=== PATIENT | male | born 1935 | race Caucasian/White ===

== ENCOUNTER 2019-07-23 03:31 | Inpatient (IN) | payer OTHER, BC ==
--- NOTE | 2019-07-23 04:29 | PDOC ---
History of Present Illness - General Chief Complaint: Psychiatric Stated Complaint: ALTERED MENTAL STATUS Time Seen by Provider: 07/23/19 04:18 History Source: Patient, Family, Spouse (son) - History of Present Illness Initial Comments: 83 yo M PMH HTN, DMII, CAD s/p stents, depression, BPH, gout, kidney stones, parathyroid adenoma s/p parathyroidectomy 4 years ago, presenting with visual hallucinations. States that there are people with cameras everywhere, spying on him. Per family, he has had a cough for the past few days. Took Nyquil last night (normal dose) and visual hallucinations happened afterwards. Reportedly had delusions that nurses were changing his medication around the time period he had his parathyroidectomy, which improved after the surgery. Patient had not had any psychiatric issues since then. Specifically denies SI or HI. Patient has no complaints. Specifically denies LOC or trauma of any kind. Past History - Past Medical History Allergies/Adverse Reactions: Allergies No Known Allergies Allergy (Verified 07/23/19 03:45) Home Medications: Ambulatory Orders Finasteride 5 mg PO DAILY 03/27/15 Lisinopril [Prinivil -] 10 mg PO DAILY 03/27/15 Metoprolol Succinate [Toprol Xl -] 25 mg PO DAILY 03/27/15 Tamsulosin HCl [Flomax] 0.4 mg PO DAILY 03/27/15 Clopidogrel Bisulfate [Clopidogrel] 75 mg PO DAILY 07/23/19 Levothyroxine [Synthroid -] 88 mcg PO DAILY 07/23/19 - Social History Smoking Status: Never smoked *Review of Systems - Review of Systems Able to Perform ROS?: Yes Constitutional: No: Chills, Fever, Weakness HEENTM: No: Recent change in vision, Throat Pain, Throat Swelling, Mouth Swelling Respiratory: Yes: Cough. No: Shortness of Breath Cardiac (ROS): No: Chest Pain, Edema, Irregular Heart Rate, Palpitations ABD/GI: No: Constipated, Diarrhea, Nausea, Vomiting : No: Burning, Dysuria Musculoskeletal: No: Back Pain, Neck Pain Integumentary: No: Bruising Neurological: No: Headache, Numbness, Tingling *Physical Exam - Vital Signs Last Vital Signs Temp Pulse Resp BP Pulse Ox 85 18 119/67 95 07/23/19 03:38 07/23/19 03:38 07/23/19 03:38 07/23/19 03:38 - Physical Exam Comments: 07/23/19 04:59 Gen: well-developed, well-nourished, NAD Neuro: AAOX4, CN II-XII intact, FTN intact, pupils bilaterally constricted and minimally responsive to light Psych: denies SI or HI, endorses visual hallucinations and delusions (sees people with cameras everywhere who are spying on him) HEENT: atraumatic, normocephalic Neck: trachea midline, supple CV: regular rate, regular rhythm, no murmurs, rubs, or gallops Pulm: diffusely muffled bilaterally Abd: soft, non-distended, non-tender MSK: full ROM, intact pulses Extr: no edema, no deformities Skin: warm, dry Plan - Progress Note Progress Note: 07/23/19 05:01 Concern for infection (temp of 100.1, sat at 94%) v possible brain bleed v mass v depression with hallucinations (diagnosis of exclusion). - CBC, CMP - EKG, CXR - UA/UC - blood cultures - trop - ctm - get psych on board once patient is medically cleared 07/23/19 06:47 EKG 71 bpm, normal sinus. 07/23/19 07:13 CXR concerning for R lower lobe PNA. Will treat empirically for CAP, admit patient. 07/23/19 07:[address] Oquendo, will get patient admitted. - Laboratory CBC & Chemistry Diagram: 07/23/19 05:21 07/23/19 05:21
--- NOTE | 2019-07-23 05:14 | PDOC ---
Attending Attestation - Resident Resident Name: Danielle Cash - ED Attending Attestation I have performed the following: I have examined & evaluated the patient, The case was reviewed & discussed with the resident, I agree w/resident's findings & plan, Exceptions are as noted - HPI HPI: 07/23/19 05:12 83 M with h/o HTN, DM, CAD/stents, depression, BPH, parathyroidectomy, presenting to ED with AMS. Pt's family states that he has been having visual hallucinations, believing that people are taking pictures of him with cameras. The hallucinations started over the past 24 hours. Family notes that he has been coughing for 2 days but has not had any fevers or chills. No previous history of hallucinations. - Physicial Exam PE: 07/23/19 05:13 "GENERAL: Awake, alert, and fully oriented, in no acute distress. HEAD: No signs of trauma EYES: PERRLA, EOMI, sclera anicteric, conjunctiva clear ENT: Auricles normal inspection, hearing grossly normal, nares patent, oropharynx clear without exudates. Moist mucosa NECK: Nontender, no stepoffs, Normal ROM, supple, no lymphadenopathy, JVD, or masses LUNGS: Breath sounds equal, clear to auscultation bilaterally. No wheezes, and no crackles HEART: Regular rate and rhythm, normal S1 and S2, no murmurs, rubs or gallops ABDOMEN: Soft, nontender, normoactive bowel sounds. No guarding, no rebound. No masses EXTREMITIES: Normal range of motion, no edema. No clubbing or cyanosis. No cords, erythema, or tenderness NEUROLOGICAL: Cranial nerves II through XII intact. 5/5 strength and sensation in all extremities, Normal speech, normal gait, normal cerebellar function SKIN: Warm, Dry, normal turgor, no rashes or lesions noted. - Medical Decision Making 07/23/19 05:13 83 M with hallucinations. Suspect delirium in the setting of febrile illness. Pt with temp 100.1 in ED. Will evaluate for UTI vs PNA. Pt with no headache or other signs of meningismus. - Labs, cultures - CXR, UA - CT head
[2019-07-23 05:40] LABS: BASO % 0.6 % (0-2.0); EOS % 0.1 % (0-4.5); HEMATOCRIT 41.2 % (35.4-49); HEMOGLOBIN 13.7 GM/dL (11.7-16.9); LYMPH % 14.4 % (8-40); MCH 27.5 pg (25.7-33.7); MCHC 33.3 g/dl (32.0-35.9); MEAN CELL VOLUME 82.7 fl (80-96); MEAN PLT VOLUME 7.3 fl (7.5-11.1); MONO % 11.6 % (3.8-10.2); NEUT % 73.3 % (42.8-82.8); PLATELET COUNT 105 K/MM3 (134-434); RBC 4.98 M/mm3 (4.00-5.60); RDW 14.4 % (11.9-15.9); WHITE BLOOD COUNT 4.3 K/mm3 (4.0-10.0)
[2019-07-23 06:04] LABS: MAGNESIUM 1.9 mg/dL (1.8-2.4); PHOSPHOROUS 2.2 mg/dL (2.5-4.9)
[2019-07-23 06:24] LABS: ALBUMIN 3.3 g/dl (3.4-5.0); ALK PHOS 96 U/L (45-117); ANION GAP 7 MMOL/L (8-16); BILIRUBIN,TOTAL 1.1 mg/dL (0.2-1); BLOOD UREA NITROGEN 15.6 mg/dL (7-18); CALCIUM 8.5 mg/dL (8.5-10.1); CHLORIDE 105 mmol/L (98-107); CO2 27 mmol/L (21-32); CREATININE 0.9 mg/dL (0.55-1.3); GLUCOSE,RANDOM 122 mg/dL (74-106); POTASSIUM 3.9 mmol/L (3.5-5.1); SGOT/AST 17 U/L (15-37); SGPT/ALT 14 U/L (13-61); SODIUM 138 mmol/L (136-145); TOT PROT 6.1 g/dl (6.4-8.2)
[2019-07-23] MEDS ORDERED: AZITHROMYCIN IVPB 500 MG in DEXTROSE 5%-WATER - 250 ML IVPB ONE (07:13)
--- NOTE | 2019-07-23 07:24 | PDOC ---
*Physical Exam - Vital Signs Last Vital Signs Temp Pulse Resp BP Pulse Ox 100.1 F H 85 18 119/67 95 07/23/19 04:54 07/23/19 03:38 07/23/19 03:38 07/23/19 03:38 07/23/19 03:38 ED Treatment Course - LABORATORY CBC & Chemistry Diagram: 07/23/19 05:21 07/23/19 05:21 - ADDITIONAL ORDERS Additional order review: Laboratory Results 07/23/19 07/23/19 05:21 05:21 Sodium 138 Potassium 3.9 Chloride 105 Carbon Dioxide 27 Anion Gap 7 L BUN 15.6 Creatinine 0.9 Est GFR (CKD-EPI)AfAm 89.95 Est GFR (CKD-EPI)NonAf 77.61 Random Glucose 122 H Calcium 8.5 Phosphorus 2.2 L Magnesium 1.9 Total Bilirubin 1.1 H AST 17 ALT 14 Alkaline Phosphatase 96 Troponin I < 0.02 Total Protein 6.1 L Albumin 3.3 L 07/23/19 05:21 RBC 4.98 MCV 82.7 MCHC 33.3 RDW 14.4 MPV 7.3 L Neutrophils % 73.3 Lymphocytes % 14.4 Monocytes % 11.6 H Eosinophils % 0.1 D Basophils % 0.6 D Medical Decision Making - Medical Decision Making 07/23/19 07:23 - Sign out received from Dr. Santos. - Will admit
[2019-07-23] MEDS ORDERED: CEFTRIAXONE 1 GM/50 ML BAG ONE (08:14)
[2019-07-23] MEDS ORDERED: NAPH,MB-DB/K PH,MBDB POWDER PACKET PO ONE (08:16)
--- NOTE | 2019-07-23 08:22 | EKG ---
Test Reason : Blood Pressure : / mmHG Vent. Rate : 071 BPM Atrial Rate : 071 BPM P-R Int : 142 ms QRS Dur : 094 ms QT Int : 394 ms P-R-T Axes : 022 -07 049 degrees QTc Int : 428 ms NORMAL SINUS RHYTHM NORMAL ECG WHEN COMPARED WITH ECG OF 27-MAR-2015 16:20, NONSPECIFIC T WAVE ABNORMALITY NO LONGER EVIDENT IN INFERIOR LEADS T WAVE INVERSION NO LONGER EVIDENT IN LATERAL LEADS Confirmed by Hazel Garvin ([id number]) on 07/23/2019 8:22:28 AM Referred By: Confirmed By:Hazel Garvin
[2019-07-23 08:27] LABS: EPI CELLS 0.3 /HPF (0-5/HPF); HYALINE CASTS 0 /lpf (0-8); URINE APPEARANCE CLEAR; URINE BACTERIA 24.6 /hpf (NEGATIVE); URINE BILIRUBIN NEGATIVE (NEGATIVE); URINE COLOR YELLOW; URINE GLUCOSE (UA) NEGATIVE (NEGATIVE); URINE KETONE NEGATIVE (NEGATIVE); URINE LEUK ESTERASE NEGATIVE (NEGATIVE); URINE NITRITE NEGATIVE (NEGATIVE); URINE PROTEIN NEGATIVE (NEGATIVE); URINE RBC 5 /hpf (0-4); URINE WBC 0 /hpf (0-5)
--- NOTE | 2019-07-23 09:00 | PDOC ---
*Physical Exam - Vital Signs Last Vital Signs Temp Pulse Resp BP Pulse Ox 100.1 F H 80 20 141/65 97 07/23/19 04:54 07/23/19 08:03 07/23/19 08:03 07/23/19 08:03 07/23/19 08:03 - Physical Exam Comments: 07/23/19 08:59 Awake alert no acute distress dry mucous membranes lungs are noted for crackles at the bases posteriorly otherwise clear heart is regular without murmurs rubs or gallops abdomen is soft and nontender extremities are warm well perfused skin is noted for a red scaly rash in the buttock region possible stage I decub there is no fluctuance no warmth otherwise skin is clear dry and intact ED Treatment Course - LABORATORY CBC & Chemistry Diagram: 07/23/19 05:21 07/23/19 05:21 - ADDITIONAL ORDERS Additional order review: Laboratory Results 07/23/19 07/23/19 07/23/19 08:00 05:21 05:21 Sodium 138 Potassium 3.9 Chloride 105 Carbon Dioxide 27 Anion Gap 7 L BUN 15.6 Creatinine 0.9 Est GFR (CKD-EPI)AfAm 89.95 Est GFR (CKD-EPI)NonAf 77.61 Random Glucose 122 H Calcium 8.5 Phosphorus 2.2 L Magnesium 1.9 Total Bilirubin 1.1 H AST 17 ALT 14 Alkaline Phosphatase 96 Troponin I < 0.02 Total Protein 6.1 L Albumin 3.3 L Urine Color Yellow Urine Appearance Clear Urine pH 6.0 Ur Specific [place] 1.016 Urine Protein Negative Urine Glucose (UA) Negative Urine Ketones Negative Urine Blood Trace Urine Nitrite Negative Urine Bilirubin Negative Urine Urobilinogen 1.0 Ur Leukocyte Esterase Negative Urine WBC (Auto) 0 Urine RBC (Auto) 5 Urine Casts (Auto) 0 U Epithel Cells (Auto) 0.3 Urine Bacteria (Auto) 24.6 07/23/19 05:21 RBC 4.98 MCV 82.7 MCHC 33.3 RDW 14.4 MPV 7.3 L Neutrophils % 73.3 Lymphocytes % 14.4 Monocytes % 11.6 H Eosinophils % 0.1 D Basophils % 0.6 D - Medications Given in the ED: ED Medications Discontinued Medications Generic Name Dose Route Start Last Admin Trade Name Freq PRN Reason Stop Dose Admin Ceftriaxone Sodium 1,000 mg 07/23/19 07:13 07/23/19 08:15 Rocephin - IVPUSH 07/23/19 07:14 1,000 mg ONCE ONE Administration Medical Decision Making - Medical Decision Making 07/23/19 08:56 Yes Very experience of this medication she looks: Patient is here 83-year-old male history of hypertension CAD with stents BPH depression hyperlipidemia here today complaining of confusion with family members and states he has been hallucinating. Patient was signed out to me by the overnight team ice and care of the patient at 7 AM states that he has had a cough productive of phlegm for the last few days denies any nausea vomiting or abdominal pain. Patient's family states that he did take some NyQuil on the evening prior and they have been noticing that he has been hallucinating other than the NyQuil no new medications. He is complaining also of a rash on his buttock for which she was given some creams by dermatology recently no reported fever chills at home however the patient was febrile presentation here. On my exam the patient is awake alert does appear to have mild dry mucous membranes lungs are noted for crackles at the bases no wheezing normal effort heart is regular without murmurs rubs or gallops abdomen is soft and nontender extremities are warm and well-perfused. Skin is warm and dry the gluteal region is noted for what appears to be stage I mild erythema there is some scaling X-ray by the ED team was felt to have concerns for right lower lobe infiltrate radiology did read as negative however his clinical exam shows crackles and he is febrile consistent with his cough will be treated with azithromycin and ceftriaxone delirium could be attributed to infection and underlying dementia also contributing factor may have been the NyQuil that the patient took patient was endorsed to the admitting team diagnosis delirium and commune acquired pneumonia Discharge - Discharge Information Problems reviewed: Yes Clinical Impression/Diagnosis: Delirium, Pneumonia, Febrile illness - Follow up/Referral - Patient Discharge Instructions - Post Discharge Activity
[2019-07-23] MEDS ORDERED: LACTATED RINGERS SOLUTION 1,000 ML IV SCH (09:15)
--- NOTE | 2019-07-23 09:21 | HP ---
CHIEF COMPLAINT: altered mental status HISTORY OF PRESENT ILLNESS: 83 year old male with a past medical history of diabetes mellitus, hypertension , CAD s/p stents, depression, and parathyroidectomy presents to the hospital for 1 night of altered mental status. Per at bedside, she reports that last night around 2am, the patient was awake and started to see "cameras in the house" and reported seeing people in the house that were not there. States that a similar event happened only once before several years ago after his parathyroidectomy but never since. The family endorses a 2 day history of non- productive cough. No recent travel, no sick contacts. Denies dysuria, polyuria, chest pain, shortness of breath, fevers, chills, nausea, vomiting, diarrhea, abdominal pain. ER course was notable for: (1) Temp in ER 100.1 (2) CXR in ER reported clear, could have faint, small infiltrate in RLL (3) thrombocytopenia Recent Travel: denies PAST MEDICAL HISTORY: DM, HTN, CAD s/p stents, depression, parathyroid PAST SURGICAL HISTORY: cardiac stenting 1 year ago, parathyroidectomy 3 years ago Social History: Smoking: former, quit 30 years ago Alcohol: social Drugs: denies Family History: family history of heart disease Allergies No Known Allergies Allergy (Verified 07/23/19 03:45) HOME MEDICATIONS: Home Medications Medication Instructions Recorded Finasteride 5 mg PO DAILY 03/27/15 Lisinopril [Prinivil -] 10 mg PO DAILY 03/27/15 Metoprolol Succinate [Toprol Xl -] 25 mg PO DAILY 03/27/15 Tamsulosin HCl [Flomax] 0.4 mg PO DAILY 03/27/15 Clopidogrel Bisulfate [Clopidogrel] 75 mg PO DAILY 07/23/19 Levothyroxine [Synthroid -] 88 mcg PO DAILY 07/23/19 REVIEW OF SYSTEMS CONSTITUTIONAL: Absent: fever, chills, diaphoresis, generalized weakness, malaise, loss of appetite, weight change HEENT: Absent: rhinorrhea, nasal congestion, throat pain, throat swelling, difficulty swallowing, mouth swelling, ear pain, eye pain, visual changes CARDIOVASCULAR: Absent: chest pain, syncope, palpitations, irregular heart rate, lightheadedness , peripheral edema RESPIRATORY: Absent: cough, shortness of breath, dyspnea with exertion, orthopnea, wheezing, stridor, hemoptysis GASTROINTESTINAL: Absent: abdominal pain, abdominal distension, nausea, vomiting, diarrhea, constipation, melena, hematochezia GENITOURINARY: Absent: dysuria, frequency, urgency, hesitancy, hematuria, flank pain, genital pain MUSCULOSKELETAL: Absent: myalgia, arthralgia, joint swelling, back pain, neck pain SKIN: Absent: rash, itching, pallor HEMATOLOGIC/IMMUNOLOGIC: Absent: easy bleeding, easy bruising, lymphadenopathy, frequent infections ENDOCRINE: Absent: unexplained weight gain, unexplained weight loss, heat intolerance, cold intolerance NEUROLOGIC: Absent: headache, focal weakness or paresthesias, dizziness, unsteady gait, seizure, mental status changes, bladder or bowel incontinence PSYCHIATRIC: Absent: anxiety, depression, suicidal or homicidal ideation, hallucinations. PHYSICAL EXAMINATION Vital Signs - 24 hr 07/23/19 07/23/19 07/23/19 03:38 04:54 08:03 Temperature 100.1 F H Pulse Rate 85 Pulse Rate [ 80 Right Radial] Respiratory 18 20 Rate Blood Pressure 119/67 Blood Pressure 141/65 [Right Arm] O2 Sat by Pulse 95 97 Oximetry (%) GENERAL: A&Ox3, no acute distress EYES: PERRLA, EOMI ENT: Moist mucus membranes NECK: No JVD LUNGS: CTA, no wheezes HEART: RRR, no murmurs ABDOMEN: Soft, nontender, BS present MUSCULOSKELETAL: No CVA Tenderness EXTREMITIES: 2+ pulses, no edema. NEUROLOGICAL: Cranial nerves II-XII intact. Laboratory Results - last 24 hr 07/23/19 07/23/19 07/23/19 05:21 05:21 05:21 WBC 4.3 RBC 4.98 Hgb 13.7 Hct 41.2 MCV 82.7 MCH 27.5 MCHC 33.3 RDW 14.4 Plt Count 105 L MPV 7.3 L Absolute Neuts (auto) 3.1 Neutrophils % 73.3 Lymphocytes % 14.4 Monocytes % 11.6 H Eosinophils % 0.1 D Basophils % 0.6 D Nucleated RBC % 0 Sodium 138 Potassium 3.9 Chloride 105 Carbon Dioxide 27 Anion Gap 7 L BUN 15.6 Creatinine 0.9 Est GFR (CKD-EPI)AfAm 89.95 Est GFR (CKD-EPI)NonAf 77.61 Random Glucose 122 H Calcium 8.5 Phosphorus 2.2 L Magnesium 1.9 Total Bilirubin 1.1 H AST 17 ALT 14 Alkaline Phosphatase 96 Troponin I < 0.02 Total Protein 6.1 L Albumin 3.3 L Urine Color Urine Appearance Urine pH Ur Specific [place] Urine Protein Urine Glucose (UA) Urine Ketones Urine Blood Urine Nitrite Urine Bilirubin Urine Urobilinogen Ur Leukocyte Esterase Urine WBC (Auto) Urine RBC (Auto) Urine Casts (Auto) U Epithel Cells (Auto) Urine Bacteria (Auto) 07/23/19 08:00 WBC RBC Hgb Hct MCV MCH MCHC RDW Plt Count MPV Absolute Neuts (auto) Neutrophils % Lymphocytes % Monocytes % Eosinophils % Basophils % Nucleated RBC % Sodium Potassium Chloride Carbon Dioxide Anion Gap BUN Creatinine Est GFR (CKD-EPI)AfAm Est GFR (CKD-EPI)NonAf Random Glucose Calcium Phosphorus Magnesium Total Bilirubin AST ALT Alkaline Phosphatase Troponin I Total Protein Albumin Urine Color Yellow Urine Appearance Clear Urine pH 6.0 Ur Specific [place] 1.016 Urine Protein Negative Urine Glucose (UA) Negative Urine Ketones Negative Urine Blood Trace Urine Nitrite Negative Urine Bilirubin Negative Urine Urobilinogen 1.0 Ur Leukocyte Esterase Negative Urine WBC (Auto) 0 Urine RBC (Auto) 5 Urine Casts (Auto) 0 U Epithel Cells (Auto) 0.3 Urine Bacteria (Auto) 24.6 ASSESSMENT/PLAN: 83 year old male with a past medical history of diabetes mellitus, hypertension , CAD s/p stents, depression, and parathyroidectomy presents to the hospital for 1 night of altered mental status #Altered Mental Status: elevated temperature but no fever, low concern for infectious cause as UA is negative for UTI and CXR not convincing; due to cough will empirically treat for upper respiratory cause; he is A&O x 3 but occasionally states things that are not true (people living in his house that are not there) -blood/urine cultures -ceftriaxone/azithromycin -LR @ 83cc/hr -head CT negative -monitor mental status #Coronary Artery Disease s/p stent: chronic -continue plavix 75 daily -continue metoprolol 25 daily #Thrombocytopenia: appears to be chronic based on previous admissions to the hospital, platelets are around baseline -continue to monitor CBC #Diabetes: patient does not have antiglycemic medications at home, monitor sugar tomorrow morning #Hypertension: patient was mildly hypertensive in the ED -continue home meds lisinopril 10 and metoprolol 25 #BPH: chronic -continue finasteride/tamsulosin #FEN -LR @ 83cc/hr -lytes normal -diabetic diet #Prophylaxis -SCDs #Disposition -admit med surg Visit type - Emergency Visit Emergency Visit: Yes ED Registration Date: 07/23/19 Care time: The patient presented to the Emergency Department on the above date and was hospitalized for further evaluation of their emergent condition. - New Patient This patient is new to me today: Yes Date on this admission: 07/23/19 - Critical Care Critical Care patient: No ATTENDING PHYSICIAN STATEMENT I saw and evaluated the patient. I reviewed the resident's note and discussed the case with the resident. I agree with the resident's findings and plan as documented. SUBJECTIVE: OBJECTIVE: ASSESSMENT AND PLAN:
[2019-07-23] MEDS ORDERED: AZITHROMYCIN IVPB 500 MG/250 ML BAG IVPB ONE (10:40)
[2019-07-23] MEDS ORDERED: AZITHROMYCIN IVPB 500 MG in DEXTROSE 5%-WATER - 250 ML IVPB SCH (11:00)
[2019-07-23] MEDS ORDERED: CEFTRIAXONE 1 GM in DEXTROSE 5%-WATER - 50 ML IVPB SCH (11:00)
[2019-07-23 12:06] VITALS: BMI 28.8
[2019-07-23] MEDS: metoPROLOL SUCCINATE 25 MG TAB.SR.24H (FP) PO SCH (12:43)
[2019-07-23] MEDS: CLOPIDOGREL BISULFATE 75 MG TABLET (FP) PO SCH (12:44)
[2019-07-23] MEDS: LISINOPRIL 10 MG TABLET (FP) PO SCH (12:44)
[2019-07-23] MEDS: LEVOTHYROXINE NA 88 MCG TABLET (FP) PO SCH (12:45)
[2019-07-23] MEDS: FINASTERIDE 5 MG TABLET (FP) PO SCH (12:45)
[2019-07-23] MEDS: TAMSULOSIN HCL 0.4 MG CAP PO SCH (12:45)
--- NOTE | 2019-07-23 16:02 | PN ---
Teaching Attending Note Name of Resident: Dave Stoner ATTENDING PHYSICIAN STATEMENT I saw and evaluated the patient. I reviewed the resident's note and discussed the case with the resident. I agree with the resident's findings and plan as documented. SUBJECTIVE: Patient is an 83 year old male with a PMHx of diabetes mellitus, hypertension, CAD s/p stents, depression, and parathyroidectomy presents to the hospital for acute change of mental status. No fever or chills. denies any chest pain, no palpitations. OBJECTIVE: Vital Signs Temperature 98.4 F 07/23/19 14:00 Pulse Rate 78 07/23/19 14:00 Respiratory Rate 20 07/23/19 14:00 Blood Pressure 115/60 07/23/19 14:00 O2 Sat by Pulse Oximetry (%) 95 07/23/19 12:25 GENERAL: The patient is awake, alert, and fully oriented, in no acute distress. HEAD: Normal with no signs of trauma. EYES: PERRL, extraocular movements intact, sclera anicteric, conjunctiva clear. ENT: Ears normal, oropharynx clear without exudates, moist mucous membranes. NECK: Trachea midline, full range of motion, supple. LUNGS:decreased Breath sounds at bases, no wheezes, no crackles, no accessory muscle use. HEART: Regular rate and rhythm, S1, S2 without murmur, rub or gallop. ABDOMEN: Soft, nontender, nondistended, normoactive bowel sounds, no guarding, no rebound, no hepatosplenomegaly, no masses. EXTREMITIES: 2+ pulses, warm, well-perfused, no edema. NEUROLOGICAL: Cranial nerves II through XII grossly intact. Normal speech, gait not observed. PSYCH: Normal mood, normal affect. SKIN: Warm, dry, normal turgor, no rashes or lesions noted CBCD WBC 4.3 K/mm3 (4.0-10.0) 07/23/19 05:21 RBC 4.98 M/mm3 (4.00-5.60) 07/23/19 05:21 Hgb 13.7 GM/dL (11.7-16.9) 07/23/19 05:21 Hct 41.2 % (35.4-49) 07/23/19 05:21 MCV 82.7 fl (80-96) 07/23/19 05:21 MCHC 33.3 g/dl (32.0-35.9) 07/23/19 05:21 RDW 14.4 % (11.9-15.9) 07/23/19 05:21 Plt Count 105 K/MM3 (134-434) L 07/23/19 05:21 MPV 7.3 fl (7.5-11.1) L 07/23/19 05:21 CMP Sodium 138 mmol/L (136-145) 07/23/19 05:21 Potassium 3.9 mmol/L (3.5-5.1) 07/23/19 05:21 Chloride 105 mmol/L (98-107) 07/23/19 05:21 Carbon Dioxide 27 mmol/L (21-32) 07/23/19 05:21 Anion Gap 7 MMOL/L (8-16) L 07/23/19 05:21 BUN 15.6 mg/dL (7-18) 07/23/19 05:21 Creatinine 0.9 mg/dL (0.55-1.3) 07/23/19 05:21 Random Glucose 122 mg/dL (74-106) H 07/23/19 05:21 Calcium 8.5 mg/dL (8.5-10.1) 07/23/19 05:21 Total Bilirubin 1.1 mg/dL (0.2-1) H 07/23/19 05:21 AST 17 U/L (15-37) 07/23/19 05:21 ALT 14 U/L (13-61) 07/23/19 05:21 Alkaline Phosphatase 96 U/L (45-117) 07/23/19 05:21 Total Protein 6.1 g/dl (6.4-8.2) L 07/23/19 05:21 Albumin 3.3 g/dl (3.4-5.0) L 07/23/19 05:21 CARDIAC ENZYMES Troponin I < 0.02 ng/ml (0.00-0.05) 07/23/19 05:21 Current Medications Generic Name Dose Route Start Last Admin Trade Name Freq PRN Reason Stop Dose Admin Clopidogrel Bisulfate 75 mg 07/23/19 10:00 07/23/19 12:44 Plavix - PO 75 mg DAILY HONEY Administration Finasteride 5 mg 07/23/19 10:00 07/23/19 12:45 Proscar - PO 5 mg DAILY HONEY Administration Lactated Ringer's 1,000 mls @ 83 mls/hr 07/23/19 09:15 07/23/19 10:48 Lactated Ringers Solution IV 07/23/19 21:18 83 mls/hr ASDIR HONEY Administration Azithromycin 500 mg/ Dextrose 250 mls @ 250 mls/hr 07/24/19 10:00 IVPB DAILY HONEY Ceftriaxone Sodium 1 gm/ 50 mls @ 100 mls/hr 07/24/19 10:00 Dextrose IVPB DAILY [facility] Protocol Levothyroxine Sodium 88 mcg 07/23/19 10:00 07/23/19 12:45 Synthroid - PO Not Given DAILY@0700 [facility] Lisinopril 10 mg 07/23/19 10:00 07/23/19 12:44 Prinivil PO 10 mg DAILY [facility]ONEY Administration Metoprolol Succinate 25 mg 07/23/19 10:00 07/23/19 12:43 Toprol Xl - PO 25 mg DAILY HONEY Administration Tamsulosin HCl 0.4 mg 07/23/19 10:00 07/23/19 12:45 Flomax - PO 0.4 mg DAILY@0830 [facility] Administration Home Medications Medication Instructions Recorded Finasteride 5 mg PO DAILY 03/27/15 Lisinopril [Prinivil -] 10 mg PO DAILY 03/27/15 Metoprolol Succinate [Toprol Xl -] 25 mg PO DAILY 03/27/15 Tamsulosin HCl [Flomax] 0.4 mg PO DAILY 03/27/15 Clopidogrel Bisulfate [Clopidogrel] 75 mg PO DAILY 07/23/19 Levothyroxine [Synthroid -] 88 mcg PO DAILY 07/23/19 Urine Test Results Urine Color Yellow 07/23/19 08:00 Urine Appearance Clear 07/23/19 08:00 Urine pH 6.0 (5.0-8.0) 07/23/19 08:00 Ur Specific [place] 1.016 (1.010-1.035) 07/23/19 08:00 Urine Protein Negative (NEGATIVE) 07/23/19 08:00 Urine Glucose (UA) Negative (NEGATIVE) 07/23/19 08:00 Urine Ketones Negative (NEGATIVE) 07/23/19 08:00 Urine Blood Trace (NEGATIVE) 07/23/19 08:00 Urine Nitrite Negative (NEGATIVE) 07/23/19 08:00 Urine Bilirubin Negative (NEGATIVE) 07/23/19 08:00 Ur Leukocyte Esterase Negative (NEGATIVE) 07/23/19 08:[address]: negative ASSESSMENT AND PLAN: 83 year old male with a past medical history of diabetes mellitus, hypertension , CAD s/p stents, depression, and parathyroidectomy presents to the hospital for 1 night of altered mental status #Altered Mental Status: r/o infection ; Ua , urine cx, CXR, will start ceftriaxone/azithromycin, LR @ 83cc/hr x 1liter, will monitor #Hx of CAD s/p stent: continue plavix 75 daily/ metoprolol 25 daily #Thrombocytopenia: chronic, will monitor #Hypertension: continue home meds #BPH: continue finasteride/tamsulosin DVT Prophylaxis: SCDs
[2019-07-23] MEDS: BENZOCAINE/MENTH/CETYLPYRD CL 1 EACH LOZENGE MM PRN (17:25)
[2019-07-23] MEDS ORDERED: HALOPERIDOL LACTATE 5 MG/ML IM ONE (22:18)
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
[2019-07-23] MEDS ORDERED: HALOPERIDOL LACTATE 5 MG/ML ONE (22:24)
[2019-07-24] MEDS ORDERED: guaiFENesin 200 MG/10 ML 10 ML UNIT-DOSE CUPS PO ONE (02:11)
[2019-07-24] MEDS ORDERED: HALOPERIDOL LACTATE 5 MG/ML IM ONE ×2 (04:51→09:36)
[2019-07-24] MEDS: LEVOTHYROXINE NA 88 MCG TABLET (FP) PO SCH (06:10)
[2019-07-24 08:36] LABS: HEMATOCRIT 38.6 % (35.4-49); HEMOGLOBIN 12.8 GM/dL (11.7-16.9); MCH 27.5 pg (25.7-33.7); MCHC 33.2 g/dl (32.0-35.9); MEAN CELL VOLUME 82.8 fl (80-96); MEAN PLT VOLUME 7.5 fl (7.5-11.1); PLATELET COUNT 112 K/MM3 (134-434); RBC 4.66 M/mm3 (4.00-5.60); RDW 14.3 % (11.9-15.9); WHITE BLOOD COUNT 3.4 K/mm3 (4.0-10.0)
[2019-07-24 09:08] LABS: CALCIUM 8.6 mg/dL (8.5-10.1); CREATININE 0.9 mg/dL (0.55-1.3); MAGNESIUM 2.1 mg/dL (1.8-2.4)
[2019-07-24] MEDS ORDERED: AZITHROMYCIN IVPB 500 MG in DEXTROSE 5%-WATER - 250 ML IVPB SCH (10:00)
[2019-07-24] MEDS ORDERED: CEFTRIAXONE 1 GM in DEXTROSE 5%-WATER - 50 ML IVPB SCH (10:00)
--- NOTE | 2019-07-24 10:01 | PN ---
Teaching Attending Note Name of Resident: Maryellen Norris ATTENDING PHYSICIAN STATEMENT I saw and evaluated the patient. I reviewed the resident's note and discussed the case with the resident. I agree with the resident's findings and plan as documented. SUBJECTIVE: and a family member at bedside. events noted, as per , patient became so confused at home, with paranoid ideas. patient became worse last night, son and his daughter was at bedside. As per has been only 3 days , no similar events as per . OBJECTIVE: Vital Signs Temperature 98.2 F 07/24/19 08:45 Pulse Rate 85 07/24/19 08:45 Respiratory Rate 18 07/24/19 08:45 Blood Pressure 167/93 07/24/19 08:45 O2 Sat by Pulse Oximetry (%) 95 07/23/19 16:12 GENERAL: The patient is confused today , awake, in no acute distress. HEAD: Normal with no signs of trauma. EYES: PERRL, extraocular movements intact, sclera anicteric, conjunctiva clear. ENT: Ears normal, oropharynx clear without exudates, moist mucous membranes. NECK: Trachea midline, full range of motion, supple. LUNGS:decreased Breath sounds at bases, no wheezes, no crackles, no accessory muscle use. HEART: Regular rate and rhythm, S1, S2 without murmur, rub or gallop. ABDOMEN: Soft, NT, ND, normoactive bowel sounds, no guarding, no rebound, no hepatosplenomegaly, no masses. EXTREMITIES: 2+ pulses, warm, well-perfused, no edema. NEUROLOGICAL: Cranial nerves II through XII grossly intact. Normal speech, gait not observed. PSYCH: paranoid ideas SKIN: Warm, dry, normal turgor, no rashes or lesions noted CBCD WBC 3.4 K/mm3 (4.0-10.0) L 07/24/19 06:50 RBC 4.66 M/mm3 (4.00-5.60) 07/24/19 06:50 Hgb 12.8 GM/dL (11.7-16.9) 07/24/19 06:50 Hct 38.6 % (35.4-49) 07/24/19 06:50 MCV 82.8 fl (80-96) 07/24/19 06:50 MCHC 33.2 g/dl (32.0-35.9) 07/24/19 06:50 RDW 14.3 % (11.9-15.9) 07/24/19 06:50 Plt Count 112 K/MM3 (134-434) L 07/24/19 06:50 MPV 7.5 fl (7.5-11.1) 07/24/19 06:50 CMP Sodium 140 mmol/L (136-145) 07/24/19 06:50 Potassium 4.0 mmol/L (3.5-5.1) 07/24/19 06:50 Chloride 104 mmol/L (98-107) 07/24/19 06:50 Carbon Dioxide 29 mmol/L (21-32) 07/24/19 06:50 Anion Gap 6 MMOL/L (8-16) L 07/24/19 06:50 BUN 14.0 mg/dL (7-18) 07/24/19 06:50 Creatinine 0.9 mg/dL (0.55-1.3) 07/24/19 06:50 Random Glucose 104 mg/dL (74-106) 07/24/19 06:50 Calcium 8.6 mg/dL (8.5-10.1) 07/24/19 06:50 Total Bilirubin 1.1 mg/dL (0.2-1) H 07/23/19 05:21 AST 17 U/L (15-37) 07/23/19 05:21 ALT 14 U/L (13-61) 07/23/19 05:21 Alkaline Phosphatase 96 U/L (45-117) 07/23/19 05:21 Total Protein 6.1 g/dl (6.4-8.2) L 07/23/19 05:21 Albumin 3.3 g/dl (3.4-5.0) L 07/23/19 05:21 CARDIAC ENZYMES Troponin I < 0.02 ng/ml (0.00-0.05) 07/23/19 05:21 Current Medications Generic Name Dose Route Start Last Admin Trade Name Freq PRN Reason Stop Dose Admin Benzocaine/Menthol 1 each 07/23/19 17:07 07/23/19 17:25 Cepacol Lozenge - MM 1 each Q2H PRN Administration SORE THROAT Clopidogrel Bisulfate 75 mg 07/23/19 10:00 07/23/19 12:44 Plavix - PO 75 mg DAILY HONEY Administration Finasteride 5 mg 07/23/19 10:00 07/23/19 12:45 Proscar - PO 5 mg DAILY HONEY Administration Azithromycin 500 mg/ Dextrose 250 mls @ 250 mls/hr 07/24/19 10:00 IVPB DAILY HONEY Ceftriaxone Sodium 1 gm/ 50 mls @ 100 mls/hr 07/24/19 10:00 Dextrose IVPB DAILY [facility] Protocol Levothyroxine Sodium 88 mcg 07/23/19 10:00 07/24/19 06:10 Synthroid - PO 88 mcg DAILY@0700 HONEY Administration Lisinopril 10 mg 07/23/19 10:00 07/23/19 12:44 Prinivil PO 10 mg DAILY HONEY Administration Metoprolol Succinate 25 mg 07/23/19 10:00 07/23/19 12:43 Toprol Xl - PO 25 mg DAILY HONEY Administration Tamsulosin HCl 0.4 mg 07/23/19 10:00 07/23/19 12:45 Flomax - PO 0.4 mg DAILY@0830 HONEY Administration Home Medications Medication Instructions Recorded Finasteride 5 mg PO DAILY 03/27/15 Lisinopril [Prinivil -] 10 mg PO DAILY 03/27/15 Metoprolol Succinate [Toprol Xl -] 25 mg PO DAILY 03/27/15 Tamsulosin HCl [Flomax] 0.4 mg PO DAILY 03/27/15 Clopidogrel Bisulfate [Clopidogrel] 75 mg PO DAILY 07/23/19 Levothyroxine [Synthroid -] 88 mcg PO DAILY 07/23/19 Microbiology 07/23/19 08:00 Urine - Urine Clean Catch Urine Culture - Final NO GROWTH OBTAINED 07/23/19 05:20 Blood - Peripheral Venous Blood Culture - Preliminary NO GROWTH OBTAINED AFTER 24 HOURS, INCUBATION TO CONTINUE FOR 4 DAYS. 07/23/19 05:20 Blood - Peripheral Venous Blood Culture - Preliminary NO GROWTH OBTAINED AFTER 24 HOURS, INCUBATION TO CONTINUE FOR [address]: negative ASSESSMENT AND PLAN: 83 year old male with a past medical history of diabetes mellitus, hypertension , CAD s/p stents, depression, and parathyroidectomy presents to the hospital for 1 night of altered mental status #Altered Mental Status:unknown source , no infection noted. cx is negative so far. will discontinue IV ceftriaxone/azithromycin, LR @ 83cc/hr x 1liter, will continue to monitor. MRI of the brain ordered and neuro consult for a consult. #Hx of CAD s/p stent: continue plavix 75 daily/ metoprolol 25 daily #Thrombocytopenia: chronic, will monitor #Hypertension: continue home meds #BPH: continue finasteride/tamsulosin DVT Prophylaxis: SCDs
[2019-07-24] MEDS ORDERED: PT OWN MED DRAWER 7, Y5N ONE (10:09)
[2019-07-24] MEDS ORDERED: cefTRIAXone SODIUM 1 GM VIAL ONE ×2 (10:09→10:27)
[2019-07-24] MEDS ORDERED: DEXTROSE 5%-WATER - 50 ML IVPB ONE ×2 (10:10→10:27)
[2019-07-24] MEDS: FINASTERIDE 5 MG TABLET (FP) PO SCH (10:18)
[2019-07-24] MEDS: LISINOPRIL 10 MG TABLET (FP) PO SCH (10:18)
[2019-07-24] MEDS: CLOPIDOGREL BISULFATE 75 MG TABLET (FP) PO SCH (10:19)
[2019-07-24] MEDS: metoPROLOL SUCCINATE 25 MG TAB.SR.24H (FP) PO SCH (10:19)
[2019-07-24] MEDS: TAMSULOSIN HCL 0.4 MG CAP PO SCH (10:19)
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
--- NOTE | 2019-07-24 17:56 | PN ---
Physical Exam: SUBJECTIVE: Patient seen and examined. pt was asleep s/p haldol 5mg for agitation and aggression OBJECTIVE: Vital Signs Period Temp Pulse Resp BP Sys/Armando Pulse Ox Last 24 Hr 97.6 F-98.2 F 68-88 18-20 103-167/52-93 GENERAL: The patient is asleep, in no acute distress. HEAD: Normal with no signs of trauma. LUNGS: Breath sounds equal, clear to auscultation bilaterally, no wheezes, no crackles, no accessory muscle use. HEART: Regular rate and rhythm, S1, S2 without murmur, rub or gallop. ABDOMEN: Soft, nontender, nondistended, normoactive bowel sounds, no guarding, no rebound, no hepatosplenomegaly, no masses. EXTREMITIES: 2+ pulses, warm, well-perfused, no edema. Laboratory Results - last 24 hr 07/24/19 07/24/19 06:50 06:50 WBC 3.4 L RBC 4.66 Hgb 12.8 Hct 38.6 MCV 82.8 MCH 27.5 MCHC 33.2 RDW 14.3 Plt Count 112 L MPV 7.5 Sodium 140 Potassium 4.0 Chloride 104 Carbon Dioxide 29 Anion Gap 6 L BUN 14.0 Creatinine 0.9 Est GFR (CKD-EPI)AfAm 89.95 Est GFR (CKD-EPI)NonAf 77.61 Random Glucose 104 Calcium 8.6 Magnesium 2.1 TSH 2.79 Active Medications Generic Name Dose Route Start Last Admin Trade Name Freq PRN Reason Stop Dose Admin Benzocaine/Menthol 1 each 07/23/19 17:07 07/23/19 17:25 Cepacol Lozenge - MM 1 each Q2H PRN Administration SORE THROAT Clopidogrel Bisulfate 75 mg 07/23/19 10:00 07/24/19 10:19 Plavix - PO 75 mg DAILY HONEY Administration Finasteride 5 mg 07/23/19 10:00 07/24/19 10:18 Proscar - PO 5 mg DAILY HONEY Administration Levothyroxine Sodium 88 mcg 07/23/19 10:00 07/24/19 06:10 Synthroid - PO 88 mcg DAILY@0700 HONEY Administration Lisinopril 10 mg 07/23/19 10:00 07/24/19 10:18 Prinivil PO 10 mg DAILY HONEY Administration Metoprolol Succinate 25 mg 10/13/19 10:00 07/24/19 10:19 Toprol Xl - PO 25 mg DAILY HONEY Administration Olanzapine 5 mg 07/24/19 22:00 Zyprexa - PO HS HONEY Tamsulosin HCl 0.4 mg 07/23/19 10:00 07/24/19 10:19 Flomax - PO 0.4 mg DAILY@0830 HONEY Administration ASSESSMENT/PLAN: 83 year old male with a past medical history of diabetes mellitus, hypertension , CAD s/p stents, depression, and parathyroidectomy presents to the hospital for 1 night of altered mental status Altered Mental Status pt continues to be aggressive and altered on occasion Per neuro,continue supportive care, antipsychotic medication head CT negative MRI ordered monitor mental status cultures negative so far unlikely to be meningitis/encephalitis as per Neuro as well per neuro also b12,folate levels TSH normal Psych consulted,d/c 1:1/ zyprexa 5mg po hs for ? paranoia. Coronary Artery Disease s/p stent continue plavix 75 daily continue metoprolol 25 daily Thrombocytopenia appears to be chronic based on previous admissions to the hospital, platelets are around baseline continue to monitor CBC Diabetes WNL patient does not have antiglycemic medications at home BGM Hypertension continue home meds lisinopril 10 and metoprolol 25 BPH continue finasteride/tamsulosin FEN diabetic diet Prophylaxis SCDs Visit type - Emergency Visit Emergency Visit: Yes ED Registration Date: 07/23/19 Care time: The patient presented to the Emergency Department on the above date and was hospitalized for further evaluation of their emergent condition. - New Patient This patient is new to me today: Yes Date on this admission: 07/24/19 - Critical Care Critical Care patient: No - Discharge Referral Referred to [facility] Med P.C.: No ATTENDING PHYSICIAN STATEMENT I saw and evaluated the patient. I reviewed the resident's note and discussed the case with the resident. I agree with the resident's findings and plan as documented. SUBJECTIVE: OBJECTIVE: ASSESSMENT AND PLAN:
[2019-07-24] MEDS ORDERED: OLANZapine 5 MG TABLET PO SCH (22:00)
[2019-07-25] MEDS: LEVOTHYROXINE NA 88 MCG TABLET (FP) PO SCH (06:03)
[2019-07-25] MEDS: TAMSULOSIN HCL 0.4 MG CAP PO SCH (08:43)
[2019-07-25] MEDS ORDERED: PT OWN MED DRAWER 7, Y5N ONE (09:53)
[2019-07-25] MEDS: CLOPIDOGREL BISULFATE 75 MG TABLET (FP) PO SCH (09:55)
[2019-07-25] MEDS: LISINOPRIL 10 MG TABLET (FP) PO SCH (09:55)
[2019-07-25] MEDS: FINASTERIDE 5 MG TABLET (FP) PO SCH (09:55)
[2019-07-25] MEDS: metoPROLOL SUCCINATE 25 MG TAB.SR.24H (FP) PO SCH (09:55)
[2019-07-25] MEDS ORDERED: CYANOCOBALAMIN (VITAMIN B-12) 1000 MCG/1 ML VIAL IM SCH (10:00)
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
[2019-07-25 12:14] VITALS: TEMP 97.8
[2019-07-25 15:10] VITALS: BP 124/54; PULSE 67
[2019-07-25] MEDS ORDERED: guaiFENesin 200 MG/10 ML 10 ML UNIT-DOSE CUPS PO ONE (15:16)
[2019-07-25] MEDS: BENZOCAINE/MENTH/CETYLPYRD CL 1 EACH LOZENGE MM PRN (15:33)
--- NOTE | 2019-07-25 15:54 | PN ---
Teaching Attending Note Name of Resident: Maryellen Norris ATTENDING PHYSICIAN STATEMENT I saw and evaluated the patient. I reviewed the resident's note and discussed the case with the resident. I agree with the resident's findings and plan as documented. SUBJECTIVE: Patient is doing better, less confused today. at bedside. OBJECTIVE: Vital Signs Temperature 97.8 F 07/25/19 14:00 Pulse Rate 67 07/25/19 14:00 Respiratory Rate 20 07/25/19 14:00 Blood Pressure 124/54 L 07/25/19 14:00 O2 Sat by Pulse Oximetry (%) 95 07/24/19 21:00 GENERAL: The patient is confused today , awake, in no acute distress. HEAD: Normal with no signs of trauma. EYES: PERRL, extraocular movements intact, sclera anicteric, conjunctiva clear. ENT: Ears normal, oropharynx clear without exudates, moist mucous membranes. NECK: Trachea midline, full range of motion, supple. LUNGS:decreased Breath sounds at bases, no wheezes, no crackles, no accessory muscle use. HEART: Regular rate and rhythm, S1, S2 without murmur, rub or gallop. ABDOMEN: Soft, NT, ND, normoactive bowel sounds, no guarding, no rebound, no hepatosplenomegaly, no masses. EXTREMITIES: 2+ pulses, warm, well-perfused, no edema. NEUROLOGICAL: Cranial nerves II through XII grossly intact. Normal speech, gait not observed. PSYCH: paranoid ideas SKIN: Warm, dry, normal turgor, no rashes or lesions noted CBCD WBC 3.4 K/mm3 (4.0-10.0) L 07/24/19 06:50 RBC 4.66 M/mm3 (4.00-5.60) 07/24/19 06:50 Hgb 12.8 GM/dL (11.7-16.9) 07/24/19 06:50 Hct 38.6 % (35.4-49) 07/24/19 06:50 MCV 82.8 fl (80-96) 07/24/19 06:50 MCHC 33.2 g/dl (32.0-35.9) 07/24/19 06:50 RDW 14.3 % (11.9-15.9) 07/24/19 06:50 Plt Count 112 K/MM3 (134-434) L 07/24/19 06:50 MPV 7.5 fl (7.5-11.1) 07/24/19 06:50 CMP Sodium 140 mmol/L (136-145) 07/24/19 06:50 Potassium 4.0 mmol/L (3.5-5.1) 07/24/19 06:50 Chloride 104 mmol/L (98-107) 07/24/19 06:50 Carbon Dioxide 29 mmol/L (21-32) 07/24/19 06:50 Anion Gap 6 MMOL/L (8-16) L 07/24/19 06:50 BUN 14.0 mg/dL (7-18) 07/24/19 06:50 Creatinine 0.9 mg/dL (0.55-1.3) 07/24/19 06:50 Random Glucose 104 mg/dL (74-106) 07/24/19 06:50 Calcium 8.6 mg/dL (8.5-10.1) 07/24/19 06:50 Total Bilirubin 1.1 mg/dL (0.2-1) H 07/23/19 05:21 AST 17 U/L (15-37) 07/23/19 05:21 ALT 14 U/L (13-61) 07/23/19 05:21 Alkaline Phosphatase 96 U/L (45-117) 07/23/19 05:21 Total Protein 6.1 g/dl (6.4-8.2) L 07/23/19 05:21 Albumin 3.3 g/dl (3.4-5.0) L 07/23/19 05:21 CARDIAC ENZYMES Troponin I < 0.02 ng/ml (0.00-0.05) 07/23/19 05:21 Current Medications Generic Name Dose Route Start Last Admin Trade Name Freq PRN Reason Stop Dose Admin Benzocaine/Menthol 1 each 07/23/19 17:07 07/25/19 15:33 Cepacol Lozenge - MM 1 each Q2H PRN Administration SORE THROAT Clopidogrel Bisulfate 75 mg 07/23/19 10:00 07/25/19 09:55 Plavix - PO 75 mg DAILY HONEY Administration Cyanocobalamin 1,000 mcg 07/25/19 10:00 07/25/19 11:10 Vitamin B12 Injection - IM 1,000 mcg DAILY HONEY Administration Finasteride 5 mg 07/23/19 10:00 07/25/19 09:55 Proscar - PO 5 mg DAILY HONEY Administration Levothyroxine Sodium 88 mcg 07/23/19 10:00 07/25/19 06:03 Synthroid - PO 88 mcg DAILY@0700 HONEY Administration Lisinopril 10 mg 07/23/19 10:00 07/25/19 09:55 Prinivil PO 10 mg DAILY HONEY Administration Metoprolol Succinate 25 mg 07/23/19 10:00 07/25/19 09:55 Toprol Xl - PO 25 mg DAILY HONEY Administration Olanzapine 5 mg 07/24/19 22:00 07/24/19 21:22 Zyprexa - PO 5 mg HS [facility] Administration Tamsulosin HCl 0.4 mg 07/23/19 10:00 07/25/19 08:43 Flomax - PO 0.4 mg DAILY@0830 HONEY Administration Home Medications Medication Instructions Recorded Finasteride 5 mg PO DAILY 03/27/15 Lisinopril [Prinivil] 10 mg PO DAILY 03/27/15 Metoprolol Succinate [Toprol XL -] 25 mg PO DAILY 03/27/15 Tamsulosin HCl [Flomax -] 0.4 mg PO DAILY 03/27/15 Clopidogrel Bisulfate [Clopidogrel] 75 mg PO DAILY 07/23/19 Levothyroxine [Synthroid -] 88 mcg PO DAILY 07/23/19 Cyanocobalamin (Vitamin B-12) 1,000 mcg PO DAILY #30 tablet 07/25/19 [Vitamin B-12] Olanzapine 5 mg PO DAILY #30 tablet 07/25/19 Urine Test Results Urine Color Yellow 07/23/19 08:00 Urine Appearance Clear 07/23/19 08:00 Urine pH 6.0 (5.0-8.0) 07/23/19 08:00 Ur Specific [place] 1.016 (1.010-1.035) 07/23/19 08:00 Urine Protein Negative (NEGATIVE) 07/23/19 08:00 Urine Glucose (UA) Negative (NEGATIVE) 07/23/19 08:00 Urine Ketones Negative (NEGATIVE) 07/23/19 08:00 Urine Blood Trace (NEGATIVE) 07/23/19 08:00 Urine Nitrite Negative (NEGATIVE) 07/23/19 08:00 Urine Bilirubin Negative (NEGATIVE) 07/23/19 08:00 Ur Leukocyte Esterase Negative (NEGATIVE) 07/23/19 08:[address]: negative MRI: Moderate volume loss, ventricular dilatation and moderate periventricular chronic microvascular ischemic changes. no acute INcranial pathology. ASSESSMENT AND PLAN: Patient is a 83yo male with a PMHx of diabetes mellitus,HTN, CAD s/p stents, depression, and parathyroidectomy presents to the hospital for having acute altered mental status #Altered Mental Status: most likely that the patient took Nyquil PM , as per family , patient became violent as well. no infection noted. cx is negative so far. s/p IV ceftriaxone/azithromycin, and LR @ 83cc/hr x 1liter. MRI of the brain the result as above, [facility] and neuro consulted , as per if negative mRI. patient can be discharge home. per psych started the patient on Zyprexa low dose. #Hx of CAD s/p stent: continue plavix 75 daily/ metoprolol 25 daily #Thrombocytopenia: chronic, will monitor #Hypertension: continue home meds #BPH: continue finasteride/tamsulosin DVT Prophylaxis: SCDs discharge patient home with follow up visit with Dr. Martins and catarina.
--- NOTE | 2019-07-25 18:22 | DS ---
Physical Exam: SUBJECTIVE: Patient seen and examined. Pt offered no complaints. sitting at bedside with and eating breakfast. Pt denied any hallucinations today. OBJECTIVE: Vital Signs Period Temp Pulse Resp BP Sys/Armando Pulse Ox Last 24 Hr 97.8 F-98.4 F 62-79 20-20 124-150/54-85 95 PHYSICAL EXAM GENERAL: The patient is awake, alert, and fully oriented, in no acute distress. HEAD: Normal with no signs of trauma. EYES: PERRL, extraocular movements intact, sclera anicteric, conjunctiva clear. ENT: Ears normal, nares patent, oropharynx clear without exudates, moist mucous membranes. NECK: Trachea midline, full range of motion, supple. LUNGS: Breath sounds equal, clear to auscultation bilaterally, no wheezes, no crackles, no accessory muscle use. HEART: Regular rate and rhythm, S1, S2 without murmur, rub or gallop. ABDOMEN: Soft, nontender, nondistended, normoactive bowel sounds, no guarding, no rebound, no hepatosplenomegaly, no masses. EXTREMITIES: 2+ pulses, warm, well-perfused, no edema. NEUROLOGICAL: Cranial nerves II through XII grossly intact. Normal speech, gait not observed. strength 5/5 in all extremities and sensation intact PSYCH: Normal mood, normal affect. SKIN: Warm, dry, normal turgor, no rashes or lesions noted. LABS Laboratory Results - last 24 hr 07/24/19 07/24/19 07/25/19 06:50 17:58 06:29 POC Glucometer 106 Vitamin B12 168 L 221 TSH 2.43 D Free T4 1.33 H HOSPITAL COURSE: Date of Admission:07/23/19 83 year old male with a past medical history of diabetes mellitus, hypertension , CAD s/p stents, depression, and parathyroidectomy presents to the hospital for 1 night of altered mental status. Head CT and Brain MRI showed no acute pathology.Cultures were sent and came back negative so unlikely to have been meningitis/encephalitis as per Neuro as well. TSH was normal but FT4 was elevated to 1.33; so advised pt to get repeat TSH as o/p and to f/u with pcp for dose adjustment if needed.B12 levels also came back abnormal; pt started on 1000 mcg and to continue as o/t. Pt had multiple episodes of agitation and aggression towards staff requiring haldol and one on one to subdue patient. pt also had threatened to hurt himself and himself so psych was consulted. Psych started him on Olanzapine 5mg at night to be continued as an outpatient for paranoia and hallucinations. Pt to follow as o/p with neuro, psych and PCP since he is stable and neurologically intact. Date of Discharge: 07/25/19 Minutes to complete discharge: 35 Discharge Summary Problems reviewed: Yes Reason For Visit: COMMUNITY ACQUIRED PNEUMONIA Condition: Improved - Instructions Diet, Activity, Other Instructions: You came into the ED because you had altered mental status and hallucinations. we tested your blood and your urine for signs of infections which came back negative.We did scans of your head and of your chest and they also showed no acute pathology. While you were here you were found to have low levels of a vitamin called B12; we started you on B12 supplement please continue daily until follow up with neurology Dr Martins as an outpatient.You were seen by psychiatry while you were here and you were started on a new medication called Olanzapine; continue to take and follow up as outpatient with psychiatry. Your thyroid levels were mildly elevated please follow up with your PCP for repeat labs and dose adjustments if needed. Your symptoms have improved and you are now ready to be discharged home. Medications: Please resume all of your home medications. We have added some medications to your regimen: Please take Vitamin B12 1000 under the tongue Sublingual tablets daily Please take olanzapine 5 mg by mouth at night Follow up: Please follow up with Neurology Dr Martins within one week. Please follow up with Psychiatry Dr Ivey within one week Please follow up with Your primary care physician within one week. If you begin to experience, chest pain, shortness of breath, fevers, or weakness please return to the Emergency room immediately. Referrals: Portillo Martins MD [Staff Physician] - 1 Week Glenroy Ivey MD [Staff Physician] - 1 Week ON STAFF,NOT [Non Staff, Medical] - 1 Week Disposition: HOME - Home Medications Comprehensive Discharge Medication List: Ambulatory Orders Finasteride 5 mg PO DAILY 03/27/15 Lisinopril [Prinivil] 10 mg PO DAILY 03/27/15 Metoprolol Succinate [Toprol XL -] 25 mg PO DAILY 03/27/15 Tamsulosin HCl [Flomax -] 0.4 mg PO DAILY 03/27/15 Clopidogrel Bisulfate [Clopidogrel] 75 mg PO DAILY 07/23/19 Levothyroxine [Synthroid -] 88 mcg PO DAILY 07/23/19 Cyanocobalamin (Vitamin B-12) [Vitamin B-12] 1,000 mcg PO DAILY #30 tablet 07/25 Olanzapine 5 mg PO DAILY #30 tablet 07/25/19 Problem List - Problems (1) Delirium Problems reviewed: Yes Code(s): R41.0 - DISORIENTATION, UNSPECIFIED (2) BPH (benign prostatic hyperplasia) Code(s): N40.0 - BENIGN PROSTATIC HYPERPLASIA WITHOUT LOWER URINRY TRACT SYMP (3) CAD (coronary atherosclerotic disease) Code(s): I25.10 - ATHSCL HEART DISEASE OF [place] CORONARY ARTERY W/O ANG PCTRS (4) DM2 (diabetes mellitus, type 2) Code(s): E11.9 - TYPE 2 DIABETES MELLITUS WITHOUT COMPLICATIONS (5) HTN (hypertension) Code(s): I10 - ESSENTIAL (PRIMARY) HYPERTENSION (6) Acute renal insufficiency Code(s): N28.9 - DISORDER OF KIDNEY AND URETER, UNSPECIFIED (7) Hypercalcemia Code(s): E83.52 - HYPERCALCEMIA (8) Pneumonia Code(s): J18.9 - PNEUMONIA, UNSPECIFIED ORGANISM This patient is new to me today: No Emergency Visit: Yes ED Registration Date: 07/23/19 Care time: The patient presented to the Emergency Department on the above date and was hospitalized for further evaluation of their emergent condition. Critical Care patient: No - Discharge Referral Referred to [facility] No ATTENDING PHYSICIAN STATEMENT I saw and evaluated the patient. I reviewed the resident's note and discussed the case with the resident. I agree with the resident's findings and plan as documented. SUBJECTIVE: OBJECTIVE: ASSESSMENT AND PLAN:
== END 2019-07-25 16:43 | disposition home or self-care (01) | DRG 880 ==
LOC: JER 03:31 → JERBED 07:14 → J8W 11:22
PROVIDERS: ADMIT Internal Medicine; ATTEND Internal Medicine
DX: F05 Delirium due to known physiological condition (principal); I25.10 Atherosclerotic heart disease of native coronary artery without angina pectoris; R45.851 Suicidal ideations; E11.9 Type 2 diabetes mellitus without complications; F32.9 Major depressive disorder, single episode, unspecified; N40.0 Benign prostatic hyperplasia without lower urinary tract symptoms; R44.1 Visual hallucinations; M10.9 Gout, unspecified; Z87.891 Personal history of nicotine dependence; D69.6 Thrombocytopenia, unspecified; E83.52 Hypercalcemia; N28.9 Disorder of kidney and ureter, unspecified
CPT/HCPCS: 36415; 70450-TC; 70551-TC; 71045-TC-FY; 80048; 80053; 81003; 82607; 82962; 83735; 84100; 84439; 84443; 84484; 85025; 85027; 87040; 87086; 93005; 93010; 97116-GP; 97161-GP; 99285-25

== ENCOUNTER 2020-09-13 23:54 | Inpatient (IN) | payer OTHER, BC ==
[2020-09-14 02:03] LABS: BASO % 0.7 % (0-2.0); EOS % 0.4 % (0-4.5); HEMATOCRIT 42.6 % (35.4-49); LYMPH % 17.3 % (8-40); MCH 26.7 pg (25.7-33.7); MEAN CELL VOLUME 80.9 fl (80-96); MEAN PLT VOLUME 6.7 fl (7.5-11.1); MONO % 5.3 % (3.8-10.2); NEUT % 76.3 % (42.8-82.8); PLATELET COUNT 131 K/MM3 (134-434); RBC 5.26 M/mm3 (4.00-5.60); RDW 14.7 % (11.9-15.9); WHITE BLOOD COUNT 3.5 K/mm3 (4.0-10.0)
[2020-09-14 02:14] LABS: INR 1.16 (0.83-1.09)
[2020-09-14 02:18] LABS: VENOUS BASE EXCESS 3.2 mmol/L (-2-2); VENOUS O2 SATURATION 43.8 % (70-80); VENOUS PCO2 55.8 mmHg (38-52); VENOUS PH 7.352 (7.310-7.410)
[2020-09-14 02:19] LABS: POTASSIUM 3.5 mmol/L (3.5-5.1)
[2020-09-14 02:21] LABS: CALCIUM 8.3 mg/dL (8.5-10.1)
[2020-09-14 02:22] LABS: ALBUMIN 3.2 g/dl (3.4-5.0); BLOOD UREA NITROGEN 16.4 mg/dL (7-18)
[2020-09-14 02:24] LABS: BILIRUBIN,DIRECT 0.3 mg/dL (0.0-0.2)
[2020-09-14 02:26] LABS: BILIRUBIN,TOTAL 0.7 mg/dL (0.2-1); TOT PROT 6.6 g/dl (6.4-8.2)
[2020-09-14 08:22] LABS: PH,URINE 5.5 (5.0-8.0); URINE APPEARANCE Error; URINE BILIRUBIN NEGATIVE (NEGATIVE); URINE COLOR DK YELLOW; URINE GLUCOSE (UA) NEGATIVE (NEGATIVE); URINE KETONE NEGATIVE (NEGATIVE); URINE LEUK ESTERASE NEGATIVE (NEGATIVE); URINE NITRITE NEGATIVE (NEGATIVE); URINE PROTEIN TRACE (NEGATIVE)
[2020-09-14] MEDS ORDERED: OLANZapine 10 MG TABLET ONE (10:22)
[2020-09-14] MEDS ORDERED: LISINOPRIL 5 MG TABLET ONE (10:22)
[2020-09-14] MEDS ORDERED: metoPROLOL SUCCINATE 25 MG TAB.SR.24H (FP) ONE (10:23)
[2020-09-14] MEDS ORDERED: CLOPIDOGREL BISULFATE 75 MG TABLET (FP) ONE (10:23)
[2020-09-14] MEDS: CLOPIDOGREL BISULFATE 75 MG TABLET (FP) PO SCH (10:32)
[2020-09-14] MEDS: LISINOPRIL 20 MG TABLET PO SCH (10:32)
[2020-09-14] MEDS: OLANZapine 5 MG TABLET PO SCH (10:33)
[2020-09-14] MEDS: LEVOTHYROXINE NA 88 MCG TABLET (FP) PO SCH (11:31)
[2020-09-14] MEDS: FINASTERIDE 5 MG TABLET (FP) PO SCH (11:31)
[2020-09-14] MEDS ORDERED: HALOPERIDOL LACTATE 5 MG/ML IM ONE (18:29)
[2020-09-14] MEDS ORDERED: HALOPERIDOL LACTATE 5 MG/ML ONE (18:33)
[2020-09-14 23:48] VITALS: BMI 26.8
[2020-09-15] MEDS: LEVOTHYROXINE NA 88 MCG TABLET (FP) PO SCH (06:29)
[2020-09-15 08:34] LABS: POTASSIUM 3.7 mmol/L (3.5-5.1)
[2020-09-15 08:42] LABS: CALCIUM 8.7 mg/dL (8.5-10.1)
[2020-09-15 08:43] LABS: BLOOD UREA NITROGEN 19.5 mg/dL (7-18)
[2020-09-15 08:46] LABS: CREATININE 0.9 mg/dL (0.55-1.3)
[2020-09-15] MEDS: OLANZapine 5 MG TABLET PO SCH (10:02)
[2020-09-15] MEDS: TAMSULOSIN HCL 0.4 MG CAP PO SCH (10:02)
[2020-09-15] MEDS: LISINOPRIL 20 MG TABLET PO SCH (10:02)
[2020-09-15] MEDS: CLOPIDOGREL BISULFATE 75 MG TABLET (FP) PO SCH (10:02)
[2020-09-15] MEDS: FINASTERIDE 5 MG TABLET (FP) PO SCH (10:02)
[2020-09-15 14:19] LABS: N-TERMINAL BNP 167.1 pg/ml (5-450)
[2020-09-16] MEDS: LEVOTHYROXINE NA 88 MCG TABLET (FP) PO SCH (06:18)
[2020-09-16 07:58] LABS: BASO % 0.5 % (0-2.0); HEMATOCRIT 40.2 % (35.4-49); HEMOGLOBIN 13.5 GM/dL (11.7-16.9); LYMPH % 16.9 % (8-40); MCH 27.2 pg (25.7-33.7); MCHC 33.7 g/dl (32.0-35.9); MEAN CELL VOLUME 80.8 fl (80-96); MONO % 8.2 % (3.8-10.2); NEUT % 73.4 % (42.8-82.8); PLATELET COUNT 147 K/MM3 (134-434); RBC 4.98 M/mm3 (4.00-5.60); RDW 14.4 % (11.9-15.9); WHITE BLOOD COUNT 3.5 K/mm3 (4.0-10.0)
[2020-09-16 08:26] LABS: POTASSIUM 3.6 mmol/L (3.5-5.1)
[2020-09-16 08:28] LABS: CALCIUM 8.4 mg/dL (8.5-10.1)
[2020-09-16 08:29] LABS: ALBUMIN 3.1 g/dl (3.4-5.0); BLOOD UREA NITROGEN 17.5 mg/dL (7-18)
[2020-09-16] MEDS ORDERED: PT OWN MED DRAWER 7, Y5N ONE ×2 (08:31→09:18)
[2020-09-16 08:33] LABS: BILIRUBIN,TOTAL 0.9 mg/dL (0.2-1)
[2020-09-16 08:34] LABS: TOT PROT 6.1 g/dl (6.4-8.2)
[2020-09-16] MEDS: CLOPIDOGREL BISULFATE 75 MG TABLET (FP) PO SCH (09:03)
[2020-09-16] MEDS: TAMSULOSIN HCL 0.4 MG CAP PO SCH (09:03)
[2020-09-16] MEDS: LISINOPRIL 20 MG TABLET PO SCH (09:04)
[2020-09-16] MEDS: FINASTERIDE 5 MG TABLET (FP) PO SCH (09:04)
[2020-09-16] MEDS: OLANZapine 2.5 MG TABLET PO SCH (09:06)
[2020-09-16] MEDS ORDERED: BENZTROPINE MESYLATE 1 MG TABLET PO SCH (10:00)
[2020-09-17] MEDS ORDERED: HALOPERIDOL LACTATE 5 MG/ML IM ONE (03:48)
[2020-09-17] MEDS: LEVOTHYROXINE NA 88 MCG TABLET (FP) PO SCH (07:03)
[2020-09-17] MEDS: FINASTERIDE 5 MG TABLET (FP) PO SCH (09:30)
[2020-09-17] MEDS: TAMSULOSIN HCL 0.4 MG CAP PO SCH (09:30)
[2020-09-17] MEDS: CLOPIDOGREL BISULFATE 75 MG TABLET (FP) PO SCH (09:30)
[2020-09-17] MEDS: OLANZapine 2.5 MG TABLET PO SCH (09:30)
[2020-09-17] MEDS: LISINOPRIL 20 MG TABLET PO SCH (09:31)
[2020-09-17] MEDS: OLANZapine 10 MG TABLET PO SCH (21:50)
[2020-09-17] MEDS: ACETAMINOPHEN 325 MG TABLET (FP) PO PRN (21:56)
[2020-09-18] MEDS ORDERED: HALOPERIDOL LACTATE 5 MG/ML IM ONE (00:57)
[2020-09-18] MEDS: LEVOTHYROXINE NA 88 MCG TABLET (FP) PO SCH (06:10)
[2020-09-18] MEDS ORDERED: PT OWN MED DRAWER 7, Y5N ONE (09:01)
[2020-09-18] MEDS: TAMSULOSIN HCL 0.4 MG CAP PO SCH (09:13)
[2020-09-18] MEDS: CLOPIDOGREL BISULFATE 75 MG TABLET (FP) PO SCH (09:13)
[2020-09-18] MEDS: FINASTERIDE 5 MG TABLET (FP) PO SCH (09:13)
[2020-09-18] MEDS: LISINOPRIL 20 MG TABLET PO SCH (09:13)
[2020-09-18] MEDS: OLANZapine 10 MG TABLET PO SCH (21:52)
[2020-09-19] MEDS: LEVOTHYROXINE NA 88 MCG TABLET (FP) PO SCH ×2 (06:22→07:12)
[2020-09-19] MEDS: FINASTERIDE 5 MG TABLET (FP) PO SCH (09:15)
[2020-09-19] MEDS: LISINOPRIL 20 MG TABLET PO SCH (09:15)
[2020-09-19] MEDS: CLOPIDOGREL BISULFATE 75 MG TABLET (FP) PO SCH (09:15)
[2020-09-19] MEDS: TAMSULOSIN HCL 0.4 MG CAP PO SCH (09:16)
[2020-09-19] MEDS: OLANZapine 10 MG TABLET PO SCH (21:30)
[2020-09-20] MEDS: LISINOPRIL 20 MG TABLET PO SCH (09:22)
[2020-09-20] MEDS: CLOPIDOGREL BISULFATE 75 MG TABLET (FP) PO SCH (09:23)
[2020-09-20] MEDS: TAMSULOSIN HCL 0.4 MG CAP PO SCH (09:23)
[2020-09-20] MEDS: FINASTERIDE 5 MG TABLET (FP) PO SCH (09:23)
[2020-09-20] MEDS: LEVOTHYROXINE NA 88 MCG TABLET (FP) PO SCH (09:26)
[2020-09-20] MEDS: OLANZapine 5 MG TABLET PO SCH (21:29)
[2020-09-21] MEDS: LEVOTHYROXINE NA 88 MCG TABLET (FP) PO SCH (06:30)
[2020-09-21] MEDS: CLOPIDOGREL BISULFATE 75 MG TABLET (FP) PO SCH ×2 (08:48→09:03)
[2020-09-21 08:49] LABS: BASO % 1.9 % (0-2.0); EOS % 1.3 % (0-4.5); HEMATOCRIT 43.6 % (35.4-49); HEMOGLOBIN 13.6 GM/dL (11.7-16.9); MCH 25.8 pg (25.7-33.7); MCHC 31.2 g/dl (32.0-35.9); MEAN CELL VOLUME 82.8 fl (80-96); MEAN PLT VOLUME 7.2 fl (7.5-11.1); MONO % 7.3 % (3.8-10.2); NEUT % 77.5 % (42.8-82.8); PLATELET COUNT 161 K/MM3 (134-434); RBC 5.27 M/mm3 (4.00-5.60); RDW 15.4 % (11.9-15.9); WHITE BLOOD COUNT 5.2 K/mm3 (4.0-10.0)
[2020-09-21] MEDS: LISINOPRIL 20 MG TABLET PO SCH ×2 (08:50→09:03)
[2020-09-21] MEDS: FINASTERIDE 5 MG TABLET (FP) PO SCH ×2 (08:51→09:03)
[2020-09-21] MEDS: TAMSULOSIN HCL 0.4 MG CAP PO SCH (08:51)
[2020-09-21 08:59] LABS: POTASSIUM 3.6 mmol/L (3.5-5.1)
[2020-09-21 09:04] LABS: CALCIUM 8.5 mg/dL (8.5-10.1)
[2020-09-21 09:08] LABS: CREATININE 0.8 mg/dL (0.55-1.3)
[2020-09-21] MEDS ORDERED: DEXTROSE 5%-WATER - 1,000 ML IV SCH ×2 (12:15)
[2020-09-21] MEDS: OLANZapine 5 MG TABLET PO SCH (21:15)
[2020-09-21] MEDS: ACETAMINOPHEN 325 MG TABLET (FP) PO PRN (21:15)
[2020-09-22] MEDS: LEVOTHYROXINE NA 88 MCG TABLET (FP) PO SCH (06:09)
[2020-09-22 06:50] LABS: BASO % 1.2 % (0-2.0); EOS % 1.5 % (0-4.5); HEMATOCRIT 40.7 % (35.4-49); HEMOGLOBIN 13.2 GM/dL (11.7-16.9); LYMPH % 25.1 % (8-40); MCH 26.5 pg (25.7-33.7); MCHC 32.5 g/dl (32.0-35.9); MEAN CELL VOLUME 81.7 fl (80-96); MEAN PLT VOLUME 7.4 fl (7.5-11.1); MONO % 8.6 % (3.8-10.2); NEUT % 63.6 % (42.8-82.8); PLATELET COUNT 142 K/MM3 (134-434); RBC 4.98 M/mm3 (4.00-5.60); RDW 15.7 % (11.9-15.9); WHITE BLOOD COUNT 4.3 K/mm3 (4.0-10.0)
[2020-09-22 07:07] LABS: POTASSIUM 3.3 mmol/L (3.5-5.1)
[2020-09-22 07:08] LABS: CALCIUM 7.9 mg/dL (8.5-10.1)
[2020-09-22 07:09] LABS: BLOOD UREA NITROGEN 22.4 mg/dL (7-18)
[2020-09-22 07:12] LABS: CREATININE 0.8 mg/dL (0.55-1.3)
[2020-09-22] MEDS ORDERED: D5-1/2NS+20 MEQ KCL - 20 MEQ/1,000 ML INFUS.BAG IV SCH (08:00)
[2020-09-22] MEDS: CLOPIDOGREL BISULFATE 75 MG TABLET (FP) PO SCH (09:51)
[2020-09-22] MEDS: FINASTERIDE 5 MG TABLET (FP) PO SCH (09:51)
[2020-09-22] MEDS: LISINOPRIL 20 MG TABLET PO SCH (09:51)
[2020-09-22] MEDS: TAMSULOSIN HCL 0.4 MG CAP PO SCH (09:51)
[2020-09-22] MEDS: ACETAMINOPHEN 325 MG TABLET (FP) PO PRN (21:17)
[2020-09-22] MEDS: OLANZapine 5 MG TABLET PO SCH (21:18)
[2020-09-23] MEDS: LEVOTHYROXINE NA 88 MCG TABLET (FP) PO SCH (06:17)
[2020-09-23 07:47] VITALS: TEMP 98.1
[2020-09-23] MEDS: FINASTERIDE 5 MG TABLET (FP) PO SCH (09:07)
[2020-09-23] MEDS: CLOPIDOGREL BISULFATE 75 MG TABLET (FP) PO SCH (09:07)
[2020-09-23] MEDS: TAMSULOSIN HCL 0.4 MG CAP PO SCH (09:08)
[2020-09-23 09:29] LABS: BASO % 0.8 % (0-2.0); EOS % 0.7 % (0-4.5); HEMATOCRIT 42.2 % (35.4-49); HEMOGLOBIN 13.9 GM/dL (11.7-16.9); LYMPH % 14.5 % (8-40); MCH 26.6 pg (25.7-33.7); MCHC 32.9 g/dl (32.0-35.9); MEAN CELL VOLUME 81.1 fl (80-96); MEAN PLT VOLUME 7.2 fl (7.5-11.1); MONO % 7.5 % (3.8-10.2); NEUT % 76.5 % (42.8-82.8); PLATELET COUNT 118 K/MM3 (134-434); RDW 15.1 % (11.9-15.9); WHITE BLOOD COUNT 3.3 K/mm3 (4.0-10.0)
[2020-09-23 09:45] LABS: POTASSIUM 3.9 mmol/L (3.5-5.1)
[2020-09-23] MEDS ORDERED: LISINOPRIL 10 MG TABLET PO SCH (10:00)
[2020-09-23] MEDS ORDERED: metoPROLOL SUCCINATE 25 MG TAB.SR.24H (FP) PO SCH (10:00)
[2020-09-23 10:01] LABS: CALCIUM 8.4 mg/dL (8.5-10.1)
[2020-09-23 10:06] LABS: BLOOD UREA NITROGEN 16.2 mg/dL (7-18)
[2020-09-23 12:06] VITALS: BP 146/91; PULSE 81
== END 2020-09-23 13:53 | DRG 177 ==
LOC: JER 23:54 → JERBED 09-14 09:02 → J8W 09-14 22:50
PROVIDERS: ADMIT Internal Medicine; ATTEND Internal Medicine
DX: U07.1 COVID-19 (principal); G93.41 Metabolic encephalopathy; F23 Brief psychotic disorder; E87.0 Hyperosmolality and hypernatremia; I25.10 Atherosclerotic heart disease of native coronary artery without angina pectoris; I10 Essential (primary) hypertension; E11.9 Type 2 diabetes mellitus without complications; R41.82 Altered mental status, unspecified; N40.0 Benign prostatic hyperplasia without lower urinary tract symptoms; E03.9 Hypothyroidism, unspecified; M48.02 Spinal stenosis, cervical region; R91.8 Other nonspecific abnormal finding of lung field; E87.6 Hypokalemia
CPT/HCPCS: 36415; 70450-TC; 71045-TC-FY; 72125-TC; 80048; 80053; 81003; 82248; 82550; 82728; 82803; 82962; 83605; 83615; 83880; 84443; 84484; 85025; 85610; 85730; 86140; 87040; 87086; 87186; 93005; 93010; 97116-GP; 97161-GP; 99285-25; C9803; U0003

== ENCOUNTER 2021-10-10 02:00 | Inpatient (IN) | payer OTHER, BC ==
[2021-10-10 03:44] LABS: INR 1.23 (0.83-1.09); PROTHROMBIN TIME (PATIENT) 14.4 SEC (9.7-13.0)
[2021-10-10 03:46] LABS: ACTIVATED PTT 25.4 SECONDS (25.2-36.5)
[2021-10-10 03:55] LABS: CHLORIDE 106 mmol/L (98-107); SODIUM 139 mmol/L (136-145)
[2021-10-10 03:56] LABS: CALCIUM 8.5 mg/dL (8.5-10.1)
[2021-10-10 03:58] LABS: ANION GAP 7 MMOL/L (8-16); BLOOD UREA NITROGEN 18.3 mg/dL (7-18); CO2 26 mmol/L (21-32); GLUCOSE,RANDOM 125 mg/dL (74-106)
[2021-10-10 04:01] LABS: CREATININE 1.1 mg/dL (0.55-1.3); SGOT/AST 38 U/L (15-37); SGPT/ALT 19 U/L (13-61)
[2021-10-10 04:02] LABS: BILIRUBIN,TOTAL 0.8 mg/dL (0.2-1); TOT PROT 6.7 g/dl (6.4-8.2)
[2021-10-10 04:04] LABS: ALK PHOS 95 U/L (45-117)
[2021-10-10 04:34] LABS: BASO % 0.7 % (0-2.0); EOS % 0.1 % (0-4.5); HEMATOCRIT 38.1 % (35.4-49); HEMOGLOBIN 12.7 GM/dL (11.7-16.9); MCH 27.3 pg (25.7-33.7); MCHC 33.2 g/dl (32.0-35.9); MEAN CELL VOLUME 82.3 fl (80-96); MEAN PLT VOLUME 7.2 fl (7.5-11.1); MONO % 11.1 % (3.8-10.2); NEUT % 74.1 % (42.8-82.8); PLATELET COUNT 95 10^3/uL (134-434); RBC 4.63 M/mm3 (4.00-5.60); WHITE BLOOD COUNT 4.6 K/mm3 (4.0-10.0)
[2021-10-10 05:02] LABS: ALBUMIN 3.6 g/dl (3.4-5.0)
[2021-10-10] MEDS ORDERED: ACETAMINOPHEN 1000 MG/100 ML BAG IVPB ONE (06:42)
[2021-10-10] MEDS ORDERED: ACETAMINOPHEN INJECTION 100 ML IVPB ONE (06:48)
[2021-10-10] MEDS: LISINOPRIL 10 MG TABLET PO SCH (15:58)
[2021-10-10] MEDS: metoPROLOL SUCCINATE 25 MG TAB.SR.24H (FP) PO SCH (15:58)
[2021-10-10 19:23] VITALS: BMI 27.5
[2021-10-10] MEDS: DONEPEZIL HCL 5 MG TABLET (FP) PO SCH (21:33)
[2021-10-11] MEDS: LEVOTHYROXINE NA 88 MCG TABLET (FP) PO SCH (06:06)
[2021-10-11] MEDS ORDERED: OLANZapine 5 MG TABLET PO SCH (10:00)
[2021-10-11] MEDS: ALLOPURINOL 300 MG TABLET (FP) PO SCH (10:18)
[2021-10-11] MEDS: FINASTERIDE 5 MG TABLET (FP) PO SCH (10:18)
[2021-10-11] MEDS: CLOPIDOGREL BISULFATE 75 MG TABLET (FP) PO SCH (10:18)
[2021-10-11] MEDS: metoPROLOL SUCCINATE 25 MG TAB.SR.24H (FP) PO SCH (10:18)
[2021-10-11] MEDS: ESCITALOPRAM OXALATE 10 MG TABLET PO SCH (10:18)
[2021-10-11] MEDS: OLANZapine 5 MG TABLET PO SCH (10:18)
[2021-10-11] MEDS: LISINOPRIL 10 MG TABLET PO SCH (10:19)
[2021-10-11] MEDS: TAMSULOSIN HCL 0.4 MG CAP PO SCH (10:19)
[2021-10-11] MEDS: ASPIRIN COATED 81 MG TABLET.EC PO SCH (10:19)
[2021-10-11] MEDS: DONEPEZIL HCL 5 MG TABLET (FP) PO SCH (21:48)
[2021-10-11] MEDS: MELATONIN 5 MG TABLETS PO PRN (21:48)
[2021-10-12] MEDS: LEVOTHYROXINE NA 88 MCG TABLET (FP) PO SCH (06:40)
[2021-10-12 09:15] LABS: URINE APPEARANCE TURBID; URINE COLOR BROWN; URINE GLUCOSE (UA) NEGATIVE (NEGATIVE)
[2021-10-12 09:16] LABS: URINE BILIRUBIN 1+ (NEGATIVE)
[2021-10-12 09:18] LABS: URINE PROTEIN 2+ (NEGATIVE)
[2021-10-12 09:24] LABS: EPI CELLS 0-5 /uL (0-25.1); URINE BACTERIA MODERATE /uL (0-1359); URINE RBC >200 /uL (0-23.9)
[2021-10-12] MEDS: ESCITALOPRAM OXALATE 10 MG TABLET PO SCH (10:12)
[2021-10-12] MEDS: TAMSULOSIN HCL 0.4 MG CAP PO SCH (10:12)
[2021-10-12] MEDS: OLANZapine 5 MG TABLET PO SCH (10:12)
[2021-10-12] MEDS: FINASTERIDE 5 MG TABLET (FP) PO SCH (10:13)
[2021-10-12] MEDS: ALLOPURINOL 300 MG TABLET (FP) PO SCH (10:13)
[2021-10-12] MEDS: CLOPIDOGREL BISULFATE 75 MG TABLET (FP) PO SCH (10:13)
[2021-10-12] MEDS: LISINOPRIL 10 MG TABLET PO SCH (10:13)
[2021-10-12] MEDS: metoPROLOL SUCCINATE 25 MG TAB.SR.24H (FP) PO SCH (10:13)
[2021-10-12] MEDS: ASPIRIN COATED 81 MG TABLET.EC PO SCH (10:13)
[2021-10-12] MEDS: MELATONIN 5 MG TABLETS PO PRN (22:30)
[2021-10-12] MEDS: DONEPEZIL HCL 5 MG TABLET (FP) PO SCH (22:30)
[2021-10-13] MEDS: LEVOTHYROXINE NA 88 MCG TABLET (FP) PO SCH (06:19)
[2021-10-13] MEDS: ESCITALOPRAM OXALATE 10 MG TABLET PO SCH (09:24)
[2021-10-13] MEDS: OLANZapine 5 MG TABLET PO SCH (09:24)
[2021-10-13] MEDS: LISINOPRIL 10 MG TABLET PO SCH (09:24)
[2021-10-13] MEDS: CLOPIDOGREL BISULFATE 75 MG TABLET (FP) PO SCH (09:24)
[2021-10-13] MEDS: metoPROLOL SUCCINATE 25 MG TAB.SR.24H (FP) PO SCH (09:24)
[2021-10-13] MEDS: ALLOPURINOL 300 MG TABLET (FP) PO SCH (09:25)
[2021-10-13] MEDS: FINASTERIDE 5 MG TABLET (FP) PO SCH (09:25)
[2021-10-13] MEDS: ASPIRIN COATED 81 MG TABLET.EC PO SCH (09:25)
[2021-10-13] MEDS: TAMSULOSIN HCL 0.4 MG CAP PO SCH (09:25)
[2021-10-13 10:11] LABS: BASO % 0.7 % (0-2.0); HEMOGLOBIN 12.8 GM/dL (11.7-16.9); LYMPH % 8.1 % (8-40); MCH 27.1 pg (25.7-33.7); MCHC 32.9 g/dl (32.0-35.9); MEAN CELL VOLUME 82.5 fl (80-96); MEAN PLT VOLUME 7.1 fl (7.5-11.1); MONO % 7.6 % (3.8-10.2); NEUT % 82.6 % (42.8-82.8); PLATELET COUNT 115 10^3/uL (134-434); RBC 4.72 M/mm3 (4.00-5.60); RDW 14.8 % (11.9-15.9)
[2021-10-13 10:20] LABS: ALBUMIN 3.3 g/dl (3.4-5.0); BLOOD UREA NITROGEN 18.7 mg/dL (7-18); CALCIUM 8.4 mg/dL (8.5-10.1)
[2021-10-13 10:21] LABS: MAGNESIUM 2.1 mg/dL (1.8-2.4)
[2021-10-13 10:25] LABS: TOT PROT 5.9 g/dl (6.4-8.2)
[2021-10-13] MEDS ORDERED: PT OWN MED DRAWER 7, Y5N ONE (11:17)
[2021-10-13] MEDS: ERGOCALCIFEROL (VIT D2) 50,000 UNIT (1.25 MG) CAPSULE PO SCH (11:59)
[2021-10-13] MEDS: DONEPEZIL HCL 5 MG TABLET (FP) PO SCH (22:20)
[2021-10-14] MEDS: LEVOTHYROXINE NA 88 MCG TABLET (FP) PO SCH (06:39)
[2021-10-14 09:36] LABS: HEMOGLOBIN 13.4 GM/dL (11.7-16.9); MCHC 32.6 g/dl (32.0-35.9); MEAN CELL VOLUME 82.9 fl (80-96); MEAN PLT VOLUME 6.8 fl (7.5-11.1); PLATELET COUNT 119 10^3/uL (134-434); RBC 4.95 M/mm3 (4.00-5.60); WHITE BLOOD COUNT 2.7 K/mm3 (4.0-10.0)
[2021-10-14] MEDS: FINASTERIDE 5 MG TABLET (FP) PO SCH (09:47)
[2021-10-14] MEDS: TAMSULOSIN HCL 0.4 MG CAP PO SCH (09:47)
[2021-10-14] MEDS: ALLOPURINOL 300 MG TABLET (FP) PO SCH (09:47)
[2021-10-14] MEDS: OLANZapine 5 MG TABLET PO SCH (09:47)
[2021-10-14] MEDS: ESCITALOPRAM OXALATE 10 MG TABLET PO SCH (09:47)
[2021-10-14] MEDS: ASPIRIN COATED 81 MG TABLET.EC PO SCH (09:47)
[2021-10-14] MEDS: CLOPIDOGREL BISULFATE 75 MG TABLET (FP) PO SCH (09:47)
[2021-10-14] MEDS: THIAMINE HCL 100 MG TABLET (FP) PO SCH (09:47)
[2021-10-14] MEDS: metoPROLOL SUCCINATE 25 MG TAB.SR.24H (FP) PO SCH (09:48)
[2021-10-14] MEDS: LISINOPRIL 10 MG TABLET PO SCH (09:48)
[2021-10-14 10:04] LABS: BLOOD UREA NITROGEN 23.5 mg/dL (7-18); CALCIUM 8.3 mg/dL (8.5-10.1)
[2021-10-14 10:08] LABS: CREATININE 1.1 mg/dL (0.55-1.3)
[2021-10-14 10:09] LABS: BILIRUBIN,TOTAL 1.1 mg/dL (0.2-1); TOT PROT 6.1 g/dl (6.4-8.2)
[2021-10-14] MEDS ORDERED: DEXTROSE 5%-WATER - 50 ML IVPB ONE (12:14)
[2021-10-14] MEDS ORDERED: cefTRIAXone SODIUM 1 GM VIAL ONE (12:14)
[2021-10-14] MEDS: CEFTRIAXONE 1 GM in DEXTROSE 5%-WATER - 50 ML IVPB SCH (12:17)
[2021-10-14] MEDS: MELATONIN 5 MG TABLETS PO PRN (21:18)
[2021-10-14] MEDS: DONEPEZIL HCL 5 MG TABLET (FP) PO SCH (21:18)
[2021-10-15] MEDS: LEVOTHYROXINE NA 88 MCG TABLET (FP) PO SCH (06:30)
[2021-10-15 10:05] LABS: BASO % 0.7 % (0-2.0); EOS % 0.3 % (0-4.5); HEMATOCRIT 41.4 % (35.4-49); HEMOGLOBIN 13.7 GM/dL (11.7-16.9); LYMPH % 8.6 % (8-40); MCH 27.5 pg (25.7-33.7); MCHC 33.2 g/dl (32.0-35.9); MEAN CELL VOLUME 82.7 fl (80-96); MEAN PLT VOLUME 6.9 fl (7.5-11.1); MONO % 8.9 % (3.8-10.2); NEUT % 81.5 % (42.8-82.8); PLATELET COUNT 110 10^3/uL (134-434); RDW 14.6 % (11.9-15.9)
[2021-10-15] MEDS ORDERED: PT OWN MED DRAWER 7, Y5N ONE (10:16)
[2021-10-15] MEDS ORDERED: cefTRIAXone SODIUM 1 GM VIAL ONE (10:17)
[2021-10-15] MEDS ORDERED: DEXTROSE 5%-WATER - 50 ML IVPB ONE (10:17)
[2021-10-15] MEDS: ALLOPURINOL 300 MG TABLET (FP) PO SCH (10:21)
[2021-10-15] MEDS: LISINOPRIL 10 MG TABLET PO SCH (10:21)
[2021-10-15] MEDS: CLOPIDOGREL BISULFATE 75 MG TABLET (FP) PO SCH (10:21)
[2021-10-15] MEDS: ESCITALOPRAM OXALATE 10 MG TABLET PO SCH (10:21)
[2021-10-15] MEDS: TAMSULOSIN HCL 0.4 MG CAP PO SCH (10:21)
[2021-10-15] MEDS: OLANZapine 5 MG TABLET PO SCH (10:21)
[2021-10-15] MEDS: ASPIRIN COATED 81 MG TABLET.EC PO SCH (10:22)
[2021-10-15] MEDS: metoPROLOL SUCCINATE 25 MG TAB.SR.24H (FP) PO SCH (10:22)
[2021-10-15] MEDS: THIAMINE HCL 100 MG TABLET (FP) PO SCH (10:22)
[2021-10-15] MEDS: FINASTERIDE 5 MG TABLET (FP) PO SCH (10:22)
[2021-10-15] MEDS: CEFTRIAXONE 1 GM in DEXTROSE 5%-WATER - 50 ML IVPB SCH (10:22)
[2021-10-15] MEDS ORDERED: ACETAMINOPHEN 325 MG TABLET (FP) PO ONE (21:03)
[2021-10-15] MEDS: DONEPEZIL HCL 5 MG TABLET (FP) PO SCH (21:16)
[2021-10-15] MEDS: MELATONIN 5 MG TABLETS PO PRN (21:16)
[2021-10-16] MEDS: LEVOTHYROXINE NA 88 MCG TABLET (FP) PO SCH (06:00)
[2021-10-16] MEDS ORDERED: cefTRIAXone SODIUM 1 GM VIAL ONE (09:59)
[2021-10-16] MEDS ORDERED: DEXTROSE 5%-WATER - 50 ML IVPB ONE (09:59)
[2021-10-16] MEDS: metoPROLOL SUCCINATE 25 MG TAB.SR.24H (FP) PO SCH (10:01)
[2021-10-16] MEDS: FINASTERIDE 5 MG TABLET (FP) PO SCH (10:01)
[2021-10-16] MEDS: THIAMINE HCL 100 MG TABLET (FP) PO SCH (10:01)
[2021-10-16] MEDS: TAMSULOSIN HCL 0.4 MG CAP PO SCH (10:01)
[2021-10-16] MEDS: ALLOPURINOL 300 MG TABLET (FP) PO SCH (10:02)
[2021-10-16] MEDS: CLOPIDOGREL BISULFATE 75 MG TABLET (FP) PO SCH (10:02)
[2021-10-16] MEDS: OLANZapine 5 MG TABLET PO SCH (10:02)
[2021-10-16] MEDS: ASPIRIN COATED 81 MG TABLET.EC PO SCH (10:02)
[2021-10-16] MEDS: ESCITALOPRAM OXALATE 10 MG TABLET PO SCH (10:02)
[2021-10-16] MEDS: CEFTRIAXONE 1 GM in DEXTROSE 5%-WATER - 50 ML IVPB SCH (10:02)
[2021-10-16] MEDS: LISINOPRIL 10 MG TABLET PO SCH (12:18)
[2021-10-16] MEDS: DONEPEZIL HCL 5 MG TABLET (FP) PO SCH (21:06)
[2021-10-16] MEDS: MELATONIN 5 MG TABLETS PO PRN (21:06)
[2021-10-17] MEDS: LEVOTHYROXINE NA 88 MCG TABLET (FP) PO SCH (06:05)
[2021-10-17] MEDS: HALOPERIDOL LACTATE 5 MG/ML IM PRN ×3 (08:22→21:32)
[2021-10-17] MEDS ORDERED: cefTRIAXone SODIUM 1 GM VIAL ONE (09:09)
[2021-10-17] MEDS ORDERED: DEXTROSE 5%-WATER - 50 ML IVPB ONE (09:10)
[2021-10-17] MEDS: THIAMINE HCL 100 MG TABLET (FP) PO SCH (09:46)
[2021-10-17] MEDS: CLOPIDOGREL BISULFATE 75 MG TABLET (FP) PO SCH (09:46)
[2021-10-17] MEDS: ASPIRIN COATED 81 MG TABLET.EC PO SCH (09:46)
[2021-10-17] MEDS: metoPROLOL SUCCINATE 25 MG TAB.SR.24H (FP) PO SCH (09:46)
[2021-10-17] MEDS: LISINOPRIL 10 MG TABLET PO SCH (09:46)
[2021-10-17] MEDS: ESCITALOPRAM OXALATE 10 MG TABLET PO SCH (09:46)
[2021-10-17] MEDS: TAMSULOSIN HCL 0.4 MG CAP PO SCH (09:46)
[2021-10-17] MEDS: ALLOPURINOL 300 MG TABLET (FP) PO SCH (09:46)
[2021-10-17] MEDS: OLANZapine 5 MG TABLET PO SCH (09:46)
[2021-10-17] MEDS: FINASTERIDE 5 MG TABLET (FP) PO SCH (09:46)
[2021-10-17] MEDS: CEFTRIAXONE 1 GM in DEXTROSE 5%-WATER - 50 ML IVPB SCH (09:49)
[2021-10-17] MEDS ORDERED: OLANZapine 2.5 MG TABLET PO ONE (14:45)
[2021-10-17] MEDS ORDERED: PT OWN MED DRAWER 7, Y5N ONE (15:17)
[2021-10-17] MEDS: DONEPEZIL HCL 5 MG TABLET (FP) PO SCH (21:35)
[2021-10-17] MEDS: MELATONIN 5 MG TABLETS PO PRN (21:39)
[2021-10-18] MEDS: ACETAMINOPHEN 325 MG TABLET (FP) PO PRN ×2 (00:02→15:18)
[2021-10-18] MEDS: LEVOTHYROXINE NA 88 MCG TABLET (FP) PO SCH (06:10)
[2021-10-18] MEDS ORDERED: OLANZapine 10 MG TABLET PO SCH (10:00)
[2021-10-18] MEDS ORDERED: OLANZapine 2.5 MG TABLET ONE (10:37)
[2021-10-18] MEDS ORDERED: OLANZapine 10 MG TABLET ONE (10:37)
[2021-10-18] MEDS ORDERED: PT OWN MED DRAWER 7, Y5N ONE (10:39)
[2021-10-18] MEDS ORDERED: cefTRIAXone SODIUM 1 GM VIAL ONE (10:39)
[2021-10-18] MEDS ORDERED: DEXTROSE 5%-WATER - 50 ML IVPB ONE (10:39)
[2021-10-18] MEDS: TAMSULOSIN HCL 0.4 MG CAP PO SCH (10:49)
[2021-10-18] MEDS: THIAMINE HCL 100 MG TABLET (FP) PO SCH (10:49)
[2021-10-18] MEDS: OLANZAPINE 10 MG, OLANZAPINE 2.5 MG PO SCH (10:49)
[2021-10-18] MEDS: CEFTRIAXONE 1 GM in DEXTROSE 5%-WATER - 50 ML IVPB SCH (10:50)
[2021-10-18] MEDS: metoPROLOL SUCCINATE 25 MG TAB.SR.24H (FP) PO SCH (10:50)
[2021-10-18] MEDS: ESCITALOPRAM OXALATE 10 MG TABLET PO SCH (10:50)
[2021-10-18] MEDS: CLOPIDOGREL BISULFATE 75 MG TABLET (FP) PO SCH (10:50)
[2021-10-18] MEDS: ALLOPURINOL 300 MG TABLET (FP) PO SCH (10:50)
[2021-10-18] MEDS: LISINOPRIL 10 MG TABLET PO SCH (10:50)
[2021-10-18] MEDS: FINASTERIDE 5 MG TABLET (FP) PO SCH (10:50)
[2021-10-18] MEDS: ASPIRIN COATED 81 MG TABLET.EC PO SCH (10:50)
[2021-10-18] MEDS: HEPARIN NA (PORCINE) 5,000 UNITS/ML 1ML VIAL SQ SCH ×2 (15:17→22:05)
[2021-10-18 15:27] LABS: EPI CELLS 22 /uL (0-25.1); HYALINE CASTS 9 /uL (0-3.1); URINE APPEARANCE CLOUDY; URINE BACTERIA 3 /uL (0-1359); URINE BILIRUBIN NEGATIVE (NEGATIVE); URINE COLOR DK YELLOW; URINE GLUCOSE (UA) NEGATIVE (NEGATIVE); URINE KETONE 1+ (NEGATIVE); URINE LEUK ESTERASE NEGATIVE (NEGATIVE); URINE NITRITE NEGATIVE (NEGATIVE); URINE PROTEIN 1+ (NEGATIVE); URINE RBC 41 /uL (0-23.9); URINE UROBILINOGEN 0.2 mg/dL (0.2-1.0); URINE WBC 11 /uL (0-25.8)
[2021-10-18 16:15] LABS: HEMATOCRIT 37.9 % (35.4-49); HEMOGLOBIN 12.7 GM/dL (11.7-16.9); MCH 27.3 pg (25.7-33.7); MCHC 33.5 g/dl (32.0-35.9); MEAN CELL VOLUME 81.6 fl (80-96); MEAN PLT VOLUME 7.4 fl (7.5-11.1); PLATELET COUNT 117 10^3/uL (134-434); RBC 4.64 M/mm3 (4.00-5.60); RDW 14.7 % (11.9-15.9); WHITE BLOOD COUNT 2.7 K/mm3 (4.0-10.0)
[2021-10-18 16:36] LABS: CALCIUM 8.1 mg/dL (8.5-10.1)
[2021-10-18 16:37] LABS: BLOOD UREA NITROGEN 28.9 mg/dL (7-18); MAGNESIUM 2.3 mg/dL (1.8-2.4)
[2021-10-18] MEDS: DONEPEZIL HCL 5 MG TABLET (FP) PO SCH (22:04)
[2021-10-19] MEDS: LEVOTHYROXINE NA 88 MCG TABLET (FP) PO SCH (06:14)
[2021-10-19] MEDS: HEPARIN NA (PORCINE) 5,000 UNITS/ML 1ML VIAL SQ SCH ×3 (06:15→21:53)
[2021-10-19] MEDS: HALOPERIDOL LACTATE 5 MG/ML IM PRN (07:46)
[2021-10-19] MEDS: TAMSULOSIN HCL 0.4 MG CAP PO SCH (07:47)
[2021-10-19] MEDS ORDERED: OLANZapine 10 MG TABLET ONE (08:47)
[2021-10-19] MEDS ORDERED: OLANZapine 2.5 MG TABLET ONE (08:47)
[2021-10-19] MEDS ORDERED: cefTRIAXone SODIUM 1 GM VIAL ONE (08:48)
[2021-10-19] MEDS ORDERED: DEXTROSE 5%-WATER - 50 ML IVPB ONE ×2 (08:48→16:19)
[2021-10-19] MEDS ORDERED: PT OWN MED DRAWER 7, Y5N ONE (08:48)
[2021-10-19] MEDS: ASPIRIN COATED 81 MG TABLET.EC PO SCH (09:08)
[2021-10-19] MEDS: ESCITALOPRAM OXALATE 10 MG TABLET PO SCH (09:08)
[2021-10-19] MEDS: CLOPIDOGREL BISULFATE 75 MG TABLET (FP) PO SCH (09:08)
[2021-10-19] MEDS: LISINOPRIL 10 MG TABLET PO SCH (09:08)
[2021-10-19] MEDS: metoPROLOL SUCCINATE 25 MG TAB.SR.24H (FP) PO SCH (09:09)
[2021-10-19] MEDS: THIAMINE HCL 100 MG TABLET (FP) PO SCH (09:09)
[2021-10-19] MEDS: OLANZAPINE 10 MG, OLANZAPINE 2.5 MG PO SCH (09:09)
[2021-10-19] MEDS: ALLOPURINOL 300 MG TABLET (FP) PO SCH (09:09)
[2021-10-19] MEDS: FINASTERIDE 5 MG TABLET (FP) PO SCH (09:10)
[2021-10-19] MEDS: CEFTRIAXONE 1 GM in DEXTROSE 5%-WATER - 50 ML IVPB SCH (09:10)
[2021-10-19] MEDS ORDERED: LORazepam 2 MG/ML SDV VIAL IVPUSH PRN (13:59)
[2021-10-19] MEDS: ACETAMINOPHEN 325 MG TABLET (FP) PO PRN (15:35)
[2021-10-19] MEDS ORDERED: PIPERACILLIN/TAZOBACTAM 3.375 GM VIAL IVPB ONE (16:19)
[2021-10-19] MEDS: PIPERACILLIN/TAZOB 3.375 GM 3.375 GM in DEXTROSE 5%-WATER - 50 ML IVPB SCH (16:25)
[2021-10-19 18:00] LABS: MAGNESIUM 2.3 mg/dL (1.8-2.4)
[2021-10-19 18:04] LABS: IRON SERUM 16 ug/dL (50-175); PHOSPHOROUS 2.6 mg/dL (2.5-4.9)
[2021-10-19 18:07] LABS: LDH 346 U/L (87-246)
[2021-10-19] MEDS: DONEPEZIL HCL 5 MG TABLET (FP) PO SCH (21:53)
[2021-10-20] MEDS ORDERED: PIPERACILLIN/TAZOBACTAM 3.375 GM VIAL IVPB ONE ×4 (02:47→17:32)
[2021-10-20] MEDS ORDERED: DEXTROSE 5%-WATER - 50 ML IVPB ONE ×4 (02:47→17:32)
[2021-10-20] MEDS: PIPERACILLIN/TAZOB 3.375 GM 3.375 GM in DEXTROSE 5%-WATER - 50 ML IVPB SCH ×4 (02:55→17:55)
[2021-10-20] MEDS: HEPARIN NA (PORCINE) 5,000 UNITS/ML 1ML VIAL SQ SCH ×3 (06:05→21:04)
[2021-10-20] MEDS: ACETAMINOPHEN 325 MG TABLET (FP) PO PRN ×2 (06:05→21:04)
[2021-10-20] MEDS: LEVOTHYROXINE NA 88 MCG TABLET (FP) PO SCH (06:05)
[2021-10-20 09:27] LABS: HEMATOCRIT 38.5 % (35.4-49); HEMOGLOBIN 12.4 GM/dL (11.7-16.9); MCH 26.4 pg (25.7-33.7); MCHC 32.3 g/dl (32.0-35.9); MEAN CELL VOLUME 81.9 fl (80-96); MEAN PLT VOLUME 8.2 fl (7.5-11.1); PLATELET COUNT 121 10^3/uL (134-434); RBC 4.71 M/mm3 (4.00-5.60); RDW 14.5 % (11.9-15.9)
[2021-10-20 09:39] LABS: ALBUMIN 2.7 g/dl (3.4-5.0); BILIRUBIN,TOTAL 1.1 mg/dL (0.2-1); BLOOD UREA NITROGEN 35.1 mg/dL (7-18); CALCIUM 8.2 mg/dL (8.5-10.1); CREATININE 1.1 mg/dL (0.55-1.3); TOT PROT 5.7 g/dl (6.4-8.2)
[2021-10-20] MEDS: CLOPIDOGREL BISULFATE 75 MG TABLET (FP) PO SCH (10:14)
[2021-10-20] MEDS: metoPROLOL SUCCINATE 25 MG TAB.SR.24H (FP) PO SCH (10:14)
[2021-10-20] MEDS: LISINOPRIL 10 MG TABLET PO SCH (10:14)
[2021-10-20] MEDS: THIAMINE HCL 100 MG TABLET (FP) PO SCH (10:14)
[2021-10-20] MEDS: ALLOPURINOL 300 MG TABLET (FP) PO SCH (10:14)
[2021-10-20] MEDS: FINASTERIDE 5 MG TABLET (FP) PO SCH (10:15)
[2021-10-20] MEDS: TAMSULOSIN HCL 0.4 MG CAP PO SCH (10:15)
[2021-10-20] MEDS: ERGOCALCIFEROL (VIT D2) 50,000 UNIT (1.25 MG) CAPSULE PO SCH (10:15)
[2021-10-20] MEDS: ASPIRIN COATED 81 MG TABLET.EC PO SCH (10:15)
[2021-10-20 11:02] LABS: ANISOCYTOSIS 2+; MACROCYTOSIS 0; OVALOCYTE 1+; PLATELET ESTIMATE DECREASED; TEAR DROP CELLS 1+
[2021-10-20] MEDS: DONEPEZIL HCL 5 MG TABLET (FP) PO SCH (21:04)
[2021-10-20] MEDS: MELATONIN 5 MG TABLETS PO PRN (21:04)
[2021-10-21] MEDS ORDERED: DEXTROSE 5%-WATER - 50 ML IVPB ONE ×3 (00:41→17:14)
[2021-10-21] MEDS ORDERED: PIPERACILLIN/TAZOBACTAM 3.375 GM VIAL IVPB ONE ×3 (00:41→17:14)
[2021-10-21] MEDS: PIPERACILLIN/TAZOB 3.375 GM 3.375 GM in DEXTROSE 5%-WATER - 50 ML IVPB SCH ×3 (01:28→17:32)
[2021-10-21] MEDS: HEPARIN NA (PORCINE) 5,000 UNITS/ML 1ML VIAL SQ SCH ×2 (05:49→13:27)
[2021-10-21] MEDS: LEVOTHYROXINE NA 88 MCG TABLET (FP) PO SCH (06:02)
[2021-10-21] MEDS ORDERED: PT OWN MED DRAWER 7, Y5N ONE (09:11)
[2021-10-21] MEDS: LISINOPRIL 10 MG TABLET PO SCH (09:15)
[2021-10-21] MEDS: TAMSULOSIN HCL 0.4 MG CAP PO SCH (09:15)
[2021-10-21] MEDS: FINASTERIDE 5 MG TABLET (FP) PO SCH (09:15)
[2021-10-21] MEDS: CLOPIDOGREL BISULFATE 75 MG TABLET (FP) PO SCH (09:15)
[2021-10-21] MEDS: metoPROLOL SUCCINATE 25 MG TAB.SR.24H (FP) PO SCH (09:15)
[2021-10-21] MEDS: ASPIRIN COATED 81 MG TABLET.EC PO SCH (09:15)
[2021-10-21] MEDS: THIAMINE HCL 100 MG TABLET (FP) PO SCH (09:15)
[2021-10-21] MEDS: ALLOPURINOL 300 MG TABLET (FP) PO SCH (09:15)
[2021-10-21 16:07] VITALS: BP 101/60; PULSE 61; TEMP 98.3
== END 2021-10-21 18:07 | DRG 177 ==
LOC: JER 02:00 → JERBED 04:35 → INTOOBSV 04:35 → UNDOADMOB 04:35 → JERBED 13:40 → J8W 17:45 → OBSVTOIN 10-13 11:42
PROVIDERS: ADMIT Internal Medicine
DX: U07.1 COVID-19 (principal); G93.41 Metabolic encephalopathy; F03.91 Unspecified dementia, unspecified severity, with behavioral disturbance; N39.0 Urinary tract infection, site not specified; R44.3 Hallucinations, unspecified; I10 Essential (primary) hypertension; I25.10 Atherosclerotic heart disease of native coronary artery without angina pectoris; E78.5 Hyperlipidemia, unspecified; E11.9 Type 2 diabetes mellitus without complications; E03.9 Hypothyroidism, unspecified; F32.A Depression, unspecified; M10.9 Gout, unspecified; N40.0 Benign prostatic hyperplasia without lower urinary tract symptoms; Z95.5 Presence of coronary angioplasty implant and graft
CPT/HCPCS: 36415; 70450-TC; 71045-TC-FY; 72125-TC; 73523-TC-FY; 80048; 80053; 81003; 82550; 82553; 82607; 82746; 82962; 83540; 83605; 83615; 83735; 84100; 84443; 84484; 85025; 85027; 85610; 85730; 87040; 87086; 87186; 93005; 93010; 93880-TC; 97116-GP; 99285-25; C9803; G0378; J0131; J1644; U0003; U0005

== ENCOUNTER 2021-11-07 17:49 | Emergency (ER) | payer OTHER, BC ==
[2021-11-07 18:40] VITALS: BMI 24.4
[2021-11-07] MEDS ORDERED: DIPHTH,PERTUSS(ACELL),TET 0.5 ML DISP.SYRIN IM ONE ×2 (20:45→21:13)
[2021-11-07 20:51] LABS: BASO % 0.9 % (0-2.0); EOS % 0.7 % (0-4.5); HEMATOCRIT 34.8 % (35.4-49); HEMOGLOBIN 11.4 GM/dL (11.7-16.9); LYMPH % 16.9 % (8-40); MCH 26.7 pg (25.7-33.7); MCHC 32.8 g/dl (32.0-35.9); MEAN CELL VOLUME 81.3 fl (80-96); MEAN PLT VOLUME 6.8 fl (7.5-11.1); MONO % 10.3 % (3.8-10.2); NEUT % 71.2 % (42.8-82.8); PLATELET COUNT 125 10^3/uL (134-434); RBC 4.28 M/mm3 (4.00-5.60); RDW 15.9 % (11.9-15.9); WHITE BLOOD COUNT 2.4 K/mm3 (4.0-10.0)
[2021-11-07 20:57] LABS: INR 1.11 (0.83-1.09); PROTHROMBIN TIME (PATIENT) 12.8 SEC (9.7-13.0)
[2021-11-07 21:00] LABS: ACTIVATED PTT 27.7 SECONDS (25.2-36.5)
[2021-11-07 21:15] LABS: CHLORIDE 103 mmol/L (98-107); SODIUM 141 mmol/L (136-145)
[2021-11-07 21:17] LABS: ALBUMIN 2.7 g/dl (3.4-5.0); ANION GAP 6 MMOL/L (8-16); CALCIUM 8.9 mg/dL (8.5-10.1); CO2 32 mmol/L (21-32); GLUCOSE,RANDOM 91 mg/dL (74-106)
[2021-11-07 21:18] LABS: BLOOD UREA NITROGEN 14.4 mg/dL (7-18)
[2021-11-07 21:20] LABS: SGPT/ALT 21 U/L (13-61)
[2021-11-07 21:21] LABS: SGOT/AST 29 U/L (15-37)
[2021-11-07 21:22] LABS: BILIRUBIN,TOTAL 1.1 mg/dL (0.2-1); TOT PROT 6.1 g/dl (6.4-8.2)
[2021-11-07 21:23] LABS: ALK PHOS 162 U/L (45-117)
[2021-11-08 00:42] LABS: EPI CELLS 16 /uL (0-25.1); HYALINE CASTS 6 /uL (0-3.1); PH,URINE 6.5 (5.0-8.0); URINE APPEARANCE TURBID; URINE BILIRUBIN 1+ (NEGATIVE); URINE COLOR RED; URINE GLUCOSE (UA) NEGATIVE (NEGATIVE); URINE KETONE TRACE (NEGATIVE); URINE LEUK ESTERASE 1+ (NEGATIVE); URINE NITRITE POSITIVE (NEGATIVE); URINE PROTEIN 1+ (NEGATIVE); URINE RBC 23705 /uL (0-23.9); URINE UROBILINOGEN 0.2 mg/dL (0.2-1.0); URINE WBC 26 /uL (0-25.8)
[2021-11-08] MEDS ORDERED: CEPHALEXIN MONOHYDRATE 500 MG CAPSULE (UD) PO ONE (01:09)
[2021-11-08] MEDS ORDERED: CEPHALEXIN MONOHYDRATE 500 MG CAPSULE (UD) ONE (01:13)
[2021-11-08 02:58] VITALS: BP 130/76; PULSE 88; TEMP 98.9
== END 2021-11-08 02:58 ==
LOC: JER 17:49
PROC: 3E0234Z Introduction of Serum, Toxoid and Vaccine into Muscle, Percutaneous Approach (ICD-10-PCS; principal; 2021-11-07)
DX: N39.0 Urinary tract infection, site not specified (principal); W19.XXXA Unspecified fall, initial encounter
CPT/HCPCS: 36415; 70450-TC; 71045-TC-FY; 72125-TC; 80053; 81003; 82550; 83605; 83735; 84443; 84484; 85025; 85610; 85730; 86850; 86900; 86901; 87086; 90471; 90715; 93005; 93010; 99285-25